=== PATIENT | male | born 1975 | race Two or more races ===

== ENCOUNTER 2019-03-08 11:51 | Emergency (ER) | payer MEDICARE, MEDICAID ==
[~2019-03-08] VITALS: Ht 149.9 cm; Wt 39.0 kg
--- NOTE | 2019-03-08 12:13 | NUR ---
PT SEEN AND EXAMINED BY DR. DOMINGO.
[2019-03-08] MEDS ORDERED: DIATR MEGLU/DIATRIZOATE SODIUM 30 ML BOTTLE (GASTROGRAPHIN) ONE (12:15)
--- NOTE | 2019-03-08 12:16 | NUR ---
G TUBE PLACED BY .
--- NOTE | 2019-03-08 12:17 | NUR ---
ELECTRONICS TECHNICIAN APPRENTICE AT BEDSIDE FOR KUB XRAY.
--- NOTE | 2019-03-08 12:42 | NUR ---
[facility] TRAN[facility]ORT W [id number] (30 MINS) TRIP #[id number]
--- NOTE | 2019-03-08 12:46 | NUR ---
MIGDALIA SAGE SPOKED TO [facility] PORTER ASSEMBLER HANDBAGS NOT ANSWERING.
--- NOTE | 2019-03-08 13:11 | NUR ---
REPORT GIVEN TO EMT FOR PT TRANSPORT.
[2019-03-08 13:12] VITALS: BP 103/68
== END 2019-03-08 13:22 | disposition home or self-care (01) ==
LOC: ER 11:53
DX: K94.23 Gastrostomy malfunction (principal); K21.9 Gastro-esophageal reflux disease without esophagitis; Z87.01 Personal history of pneumonia (recurrent)
CPT/HCPCS: 43762; 74018; 99284; Q9963

== ENCOUNTER 2019-03-15 17:19 | Inpatient (IN) | payer MEDICARE, MEDICAID ==
[~2019-03-15] VITALS: Ht 147.3 cm; Wt 37.3 kg
[2019-03-15] MEDS ORDERED: ALPR0.5T8 PO (18:03)
[2019-03-15] MEDS ORDERED: PROT946L PO (18:03)
[2019-03-15] MEDS ORDERED: ASCO500T9 PO (18:03)
[2019-03-15] MEDS ORDERED: LACT1CAP61 PO (18:03)
[2019-03-15] MEDS ORDERED: OCTR50DI IJ (18:03)
[2019-03-15] MEDS ORDERED: LEVA0.6320 IH (18:03)
[2019-03-15] MEDS ORDERED: OMEP20CA11 PO (18:03)
[2019-03-15] MEDS ORDERED: DOCU-141 PO (18:03)
[2019-03-15] MEDS ORDERED: BENZ1TAB7 PO (18:03)
[2019-03-15] MEDS ORDERED: FOLI1TAB16 PO (18:03)
[2019-03-15] MEDS ORDERED: ACET-73 PO (18:03)
[2019-03-15] MEDS ORDERED: PRED2.5T PO (18:03)
[2019-03-15] MEDS ORDERED: MULT-439 PO (18:03)
[2019-03-15] MEDS ORDERED: SENN-168 PO (18:03)
[2019-03-15] MEDS ORDERED: QUET50TA PO (18:03)
[2019-03-15] MEDS ORDERED: ACET1TAB23 PO (18:03)
[2019-03-15] MEDS ORDERED: MIDO5TAB PO (18:03)
[2019-03-15 19:16] LABS: BASOPHILS # (AUTO) 0.1 /CMM (0.0-0.2); BASOPHILS % (AUTO) 0.8 % (0.0-2.0); EOSINOPHILS % (AUTO) 1.2 % (0.0-6.0); HEMATOCRIT 35 % (39-51); HEMOGLOBIN 11.7 g/dL (13.5-17.5); LYMPHOCYTES # (AUTO) 2.4 /CMM (0.8-4.8); LYMPHOCYTES % (AUTO) 32.1 % (20.0-44.0); MEAN CORPUSCULAR HGB CONC 33 g/dl (31.0-36.0); MEAN CORPUSCULAR VOLUME 92 fL (80-96); MONOCYTES # (AUTO) 0.5 /CMM (0.1-1.30); MONOCYTES % (AUTO) 7.2 % (2.0-12.0); NEUTROPHILS # (AUTO) 4.5 /CMM (1.8-8.9); NEUTROPHILS % (AUTO) 58.7 % (43.0-81.0); PLATELET COUNT (AUTO) 743 /CMM (150-450); RED BLOOD CELL COUNT(AUTO) 3.84 MIL/uL (4.5-6.0); WHITE BLOOD COUNT (AUTO) 7.6 K/uL (4.3-11.0)
--- NOTE | 2019-03-15 19:21 | NUR ---
PT CAME IN W AN UPPER RIGHT HIP ABSCESS. PRESSURE SORE ON THE SACRAL AREA NOTED.
--- NOTE | 2019-03-15 19:21 | NUR ---
TRANSFER CARE REPORT TO TRUNG STEEL
[2019-03-15 19:23] LABS: CALCIUM, SERUM 9.1 mg/dL (8.5-10.1); CREATININE 0.6 mg/dL (0.6-1.3)
[2019-03-15 19:29] LABS: ALBUMIN 1.9 g/dL (3.4-5.0); BILIRUBIN,DIRECT 0.1 mg/dL (0.0-0.2); BILIRUBIN,TOTAL 0.2 mg/dL (0.2-1.0); TOTAL PROTEIN, SERUM 8.6 g/dL (6.4-8.2)
[2019-03-15] MEDS ORDERED: IV NS 0.9% 1,000 ML BAG IV ONE (20:00)
--- NOTE | 2019-03-15 20:20 | NUR ---
pt was found w/ pulled out iv. a new iv line started on RAC 18g w/ good blood draw/
[2019-03-15] MEDS ORDERED: IOHEXOL-300 100 ML VIAL IV ONE (20:32)
[2019-03-15] MEDS ORDERED: IV NS 0.9% 250 ML IV ONE (20:33)
[2019-03-15] MEDS ORDERED: CT SWABBABLE VALVE TRANS SET 1 EA INFUS.SET MC ONE (20:33)
[2019-03-15] MEDS ORDERED: VANCOMYCIN 1 GM in IV D5W 250 ML IV ONE (22:00)
[2019-03-15] MEDS ORDERED: PIPERACILLIN /TAZOBACTAM 3.375 G in IV D5W 50 ML IV ONE (22:00)
--- NOTE | 2019-03-15 22:07 | NUR ---
RECIEVED BED 310-2
[2019-03-15] MEDS ORDERED: VANCOMYCIN 1 GM VIAL ONE (22:09)
[2019-03-15] MEDS ORDERED: PIPERACILLIN /TAZOBACTAM 3.375 G VIAL IV ONE (22:09)
--- NOTE | 2019-03-15 22:27 | NUR ---
REPORT GIVEN TO MICHELLE ON THIRD FLOOR
--- NOTE | 2019-03-15 22:31 | NUR ---
GRETA PA ON THE PHONE WITH DR. LIM
--- NOTE | 2019-03-15 22:39 | NUR ---
PAGED DR ARROYO
[2019-03-15] MEDS ORDERED: SENNOSIDES 8.6 MG TABLET PO PRN (23:00)
[2019-03-15] MEDS ORDERED: ALPRAZOLAM 0.5 MG TABLET PO PRN (23:00)
[2019-03-15 23:35] VITALS: BP 127/69
--- NOTE | 2019-03-15 23:35 | NUR ---
MS RN ADMITTING NOTES RECEIVED PT FROM ER VIA [facility] IN STABLE CONDITION. PT NOTED WITH DOWN-SYNDROME, BLINDNESS, AND NON-VERBAL. RESPIRATIONS EVEN AND UNLABORED WITH NO S/S OF ACUTE DISTRESS OR SOB NOTED. PT WITH RAC #20G PATENT AND INTACT AND SL. PT NOTED WITH WOUNDS ON SACRUM AND RIGHT HIP/THIGH, PICTURES TAKEN. NO S/S OF PAIN AT THIS TIME. SAFETY MEASURES IN PLACE WITH BED IN LOWEST LOCKED POSITION WITH SIDE RAILS UP X3. CALL LIGHT WITHIN REACH. WILL CONTINUE TO MONITOR.
--- NOTE | 2019-03-15 23:44 | NUR ---
PT WAS TRANSFERRED TO 310-2 UNDER ACLS IN STABLE CONDITION.
[2019-03-16] MEDS ORDERED: MAG HYDROX/AL HYDROX/SIMETH 30 ML UDC PO PRN
[2019-03-16] MEDS ORDERED: ZOLPIDEM TARTRATE 5 MG TABLET PO PRN
[2019-03-16] MEDS ORDERED: HYDROCODONE/APAP 5/325MG 1 EACH TABLET PO PRN
[2019-03-16] MEDS ORDERED: MAGNESIUM HYDROXIDE 30 ML UDC PO PRN
[2019-03-16] MEDS ORDERED: ONDANSETRON HCL/PF 4 MG/2 ML VIAL IVP PRN
[2019-03-16] MEDS ORDERED: Z GUARD REMEDY 2 OZ OINT TP PRN
[2019-03-16] MEDS: IV NS 0.9% 1,000 ML IV PRN ×2 (01:02→20:56)
[2019-03-16] MEDS ORDERED: PIPERACILLIN /TAZOBACTAM 3.375 G VIAL IV ONE (04:47)
[2019-03-16] MEDS: PIPERACILLIN /TAZOBACTAM 3.375 G in IV D5W 50 ML IV SCH ×4 (05:33→23:43)
[2019-03-16 07:06] LABS: BASOPHILS # (AUTO) 0.1 /CMM (0.0-0.2); BASOPHILS % (AUTO) 0.8 % (0.0-2.0); EOSINOPHILS % (AUTO) 1.1 % (0.0-6.0); HEMATOCRIT 35 % (39-51); HEMOGLOBIN 11.8 g/dL (13.5-17.5); LYMPHOCYTES % (AUTO) 30.6 % (20.0-44.0); MEAN CORPUSCULAR HGB CONC 34 g/dl (31.0-36.0); MEAN CORPUSCULAR VOLUME 92 fL (80-96); MONOCYTES # (AUTO) 0.4 /CMM (0.1-1.30); MONOCYTES % (AUTO) 6.2 % (2.0-12.0); NEUTROPHILS # (AUTO) 4.1 /CMM (1.8-8.9); NEUTROPHILS % (AUTO) 61.3 % (43.0-81.0); PLATELET COUNT (AUTO) 720 /CMM (150-450); RED BLOOD CELL COUNT(AUTO) 3.84 MIL/uL (4.5-6.0); WHITE BLOOD COUNT (AUTO) 6.6 K/uL (4.3-11.0)
--- NOTE | 2019-03-16 07:39 | NUR ---
MS RN NOTES PT IN BED AND RESTING. PT NOTED WITH DOWN-SYNDROME, BLINDNESS, AND NON-VERBAL. RESPIRATIONS EVEN AND UNLABORED WITH NO S/S OF ACUTE DISTRESS OR SOB NOTED THROUGHOUT SHIFT. PT WITH RAC #20G PATENT AND INTACT INFUSING NS @75ML/HR. NO S/S OF PAIN NOTED AT THIS TIME. PT KEPT CLEAN, DRY, AND COMFORTABLE. TURNED PT Q2 HOURS THROUGHOUT SHIFT. SAFETY MEASURES IN PLACE WITH BED IN LOWEST LOCKED POSITION WITH SIDE RAILS UP X3. CALL LIGHT WITHIN REACH. WILL ENDORSE TO ONCOMING NURSE FOR MALLORIE.
[2019-03-16 07:46] LABS: ALBUMIN 1.8 g/dL (3.4-5.0); BILIRUBIN,TOTAL 0.4 mg/dL (0.2-1.0); CREATININE 0.6 mg/dL (0.6-1.3); MAGNESIUM 2.1 mg/dL (1.8-2.4); PHOSPHORUS 3.7 mg/dL (2.5-4.9); POTASSIUM 5.1 mmol/L (3.5-5.1); TOTAL PROTEIN, SERUM 8.4 g/dL (6.4-8.2)
[2019-03-16] MEDS ORDERED: FEE PK DOSING 1 MIN EA MC ONE (07:58)
[2019-03-16 08:00] VITALS: BP 119/61
[2019-03-16] MEDS ORDERED: QUETIAPINE FUMARATE 25 MG TABLET PO SCH (08:00)
[2019-03-16] MEDS: PROSOURCE / PROSTAT (PYXIS) 30 ML UDC PO SCH ×3 (08:00→17:00)
[2019-03-16] MEDS: PANTOPRAZOLE 40 MG TABLET.DR PO SCH (08:05)
[2019-03-16 08:18] LABS: CALCIUM, SERUM 8.7 mg/dL (8.5-10.1)
--- NOTE | 2019-03-16 08:21 | NUR ---
WOUND CARE CONSULT: PT TO BE FOLLOWED BY PLASTIC SURGERY TEAM. DEFER TO SURGICAL TEAM FOR WOUND TREATMENT PLAN. DISCUSSED PRESSURE ULCER PREVENTION/SKIN PROTECTION WITH NURSING STAFF. WILL SEE PRN. FIRST STEP LOW AIRLOSS MATTRESS ON ORDER. CURRENT AILYN SCORE IS 11.
[2019-03-16] MEDS: predniSONE 5 MG TABLET PO SCH (09:00)
[2019-03-16] MEDS ORDERED: OMEPRAZOLE 20 MG CAPSULE.DR PO SCH (09:00)
[2019-03-16] MEDS: VANCOMYCIN 500 MG in IV D5W 100 ML IV SCH ×2 (09:21→19:37)
[2019-03-16] MEDS: MIDODRINE HCL (5MG) 5 MG TABLET PO SCH ×3 (09:47→22:14)
[2019-03-16] MEDS: DOCUSATE SODIUM 100 MG CAPSULE PO SCH ×2 (09:48→17:00)
[2019-03-16] MEDS: ASCORBIC ACID 500 MG TABLET PO SCH (09:48)
[2019-03-16] MEDS: FOLIC ACID 1 MG TABLET PO SCH (09:49)
[2019-03-16] MEDS: BENZTROPINE MESYLATE (1 MG) 1 MG TABLET PO SCH (09:49)
[2019-03-16] MEDS: QUETIAPINE FUMARATE 25 MG TABLET PO SCH ×2 (09:49→22:15)
[2019-03-16] MEDS: ACIDOPHILUS/BULGARICUS 1 EACH TAB.CHEW PO SCH (09:55)
[2019-03-16] MEDS ORDERED: LIDOCAINE 1%-EPI 1:100,000 20 ML VIAL TP STA (14:41)
[2019-03-16 16:00] VITALS: BP 103/60
--- NOTE | 2019-03-16 19:30 | NUR ---
RN Notes Patient awake,non verbal, and blind, on room air and tolerated well. Constantly moving in bed and screaming. Iv access on left AC patent and intact with ongoing IVF infusing well. Safety measures in place. Kept clean and dry. Will continue to monitor patient.
[2019-03-16 20:00] VITALS: BP 116/76
[2019-03-16 22:00] VITALS: BP 116/76
[2019-03-17] MEDS: VANCOMYCIN 500 MG in IV D5W 100 ML IV SCH ×5 (01:17→21:36)
[2019-03-17] MEDS: PIPERACILLIN /TAZOBACTAM 3.375 G in IV D5W 50 ML IV SCH ×4 (05:45→23:26)
--- NOTE | 2019-03-17 07:08 | NUR ---
RN Notes Patient slept on and off overnight, constantly moving and screaming. No signs of distress noted. wound care done. Turned and repositioned per protocol. Kept clean and dry. Fall precaution observed. All needs attended. Endorsed to morning RN for continuity of care.
--- NOTE | 2019-03-17 07:14 | NUR ---
MS RN OPENING NOTE RECEIVED REPORT FROM [facility] SHIFT NURSE. PT AWAKE IN BED, CONFUSED, NON VERBAL. IV SITE ON LEFT AC G18 INTACT, PATENT, INFUSING NS AT 75ML/HR, NO SIGNS OF INFILTRATION NOTED. GTUBE CLAMPED. BED IN LOW POSITION, LOCKED, CALL LIGHT WITHIN REACH.
[2019-03-17 07:21] LABS: CALCIUM, SERUM 8.4 mg/dL (8.5-10.1); CREATININE 0.6 mg/dL (0.6-1.3); POTASSIUM 5.1 mmol/L (3.5-5.1)
[2019-03-17] MEDS: PANTOPRAZOLE 40 MG TABLET.DR PO SCH (07:52)
[2019-03-17 08:00] VITALS: BP 164/64
[2019-03-17] MEDS: predniSONE 5 MG TABLET PO SCH (08:42)
[2019-03-17] MEDS: QUETIAPINE FUMARATE 25 MG TABLET PO SCH ×2 (08:42→17:11)
[2019-03-17] MEDS: ASCORBIC ACID 500 MG TABLET PO SCH (08:42)
[2019-03-17] MEDS: ACIDOPHILUS/BULGARICUS 1 EACH TAB.CHEW PO SCH (08:42)
[2019-03-17] MEDS: FOLIC ACID 1 MG TABLET PO SCH (08:43)
[2019-03-17] MEDS: DOCUSATE SODIUM 100 MG CAPSULE PO SCH ×2 (08:43→17:11)
[2019-03-17] MEDS: MIDODRINE HCL (5MG) 5 MG TABLET PO SCH ×3 (08:43→17:00)
[2019-03-17] MEDS: BENZTROPINE MESYLATE (1 MG) 1 MG TABLET PO SCH (08:43)
[2019-03-17] MEDS: PROSOURCE / PROSTAT (PYXIS) 30 ML UDC PO SCH ×2 (09:05→17:12)
--- NOTE | 2019-03-17 11:00 | NUR ---
PT IS RESTLESS IN BED, HITTING, BITING, AND ATTEMPTING TO REMOVE IV LINE AND GTUBE. IV SITE ON LEFT AC BECAME INFILTRATED, REMOVED IV, APPLIED DRESSING, APPLY COLD COMPRESS. ATTEMPTED TO INSERT NEW IV SITE ON RIGHT AC, UNSUCCESSFUL INSERTION. WILL ATTEMPT AGAIN AT A LATER TIME.
--- NOTE | 2019-03-17 14:18 | NUR ---
NEW IV SITE ON RIGHT WRIST G22, INTACT, PATENT, ZOSYN INFUSING AT 100ML/HR.
[2019-03-17 15:50] VITALS: BP 116/50
--- NOTE | 2019-03-17 16:50 | NUR ---
RECEIVED PHONE CALL FROM TITLE I PARAPROFESSIONAL WITH TELEPHONE ORDERS FOR: JEVITY 1.2 AT 25ML/HR INCREASE TO 50ML/HR THROUGHOUT FIRST 24 HOURS. ORDERS PLACED.
[2019-03-17] MEDS: IV D5/0.45 NACL 1,000 ML IV PRN (17:53)
--- NOTE | 2019-03-17 18:34 | NUR ---
MS RN CLOSING NOTE PT AWAKE IN BED, ON ROOM AIR, SATURATING WELL, NO SIGNS OF RESPIRATORY DISTRESS NOTED. IV SITE ON RIGHT WRIST G22 INTACT, PATENT, INFUSING ZOSYN AT 100ML/HR, NO SIGNS OF INFILTRATION NOTED. BILATERAL SOFT WRIST RESTRAINTS WERE REMOVED EVERY 2 HOURS THROUGHOUT SHIFT TO CHECK FOR SKIN INTEGRITY AND CIRCULATION. PROVIDED SAFETY AND COMFORT TO PT THROUGHOUT SHIFT. WILL ENDORSE TO NOC SHIFT FOR MALLORIE.
--- NOTE | 2019-03-17 19:30 | NUR ---
RECEIVED PATIENT IN BED AWAKE, AO X 0, GARBLED SPEECH, YELLING. NO ACUTE DISTRESS NOTED. NO SIGNS OF PAIN NOTED. IV SITE PATENT, INTACT; IVF INFUSING ORDERED. GT PATENT, INTACT; IN PLACE VIA AUSCULTATION. BILATERAL SOFT WRIST RESTRAINTS ALREADY APPLIED; TAKEN OFF FOR SKIN CHECK AND ROM. PATIENT IS VERY RESTLESS; TUGGING AT IV LINE AND GT WHEN NOT IN RESTRAINTS. ON LOW BED WITH BILATERAL UPPER SIDE RAILS UP. CALL CASILLAS WITHIN EASY REACH. WILL CONTINUE TO MONITOR.
[2019-03-17 20:00] VITALS: BP 123/71
[2019-03-17] MEDS: JEVITY 1.2 CAL 1,000 ML BOTTLE GT PRN (23:25)
[2019-03-18] MEDS: IV D5/0.45 NACL 1,000 ML IV PRN (05:24)
[2019-03-18] MEDS: PIPERACILLIN /TAZOBACTAM 3.375 G in IV D5W 50 ML IV SCH ×2 (05:24→12:19)
--- NOTE | 2019-03-18 06:00 | NUR ---
PATIENT AWAKE. RESPIRATIONS EVEN. NO SIGNS OF PAIN NOTED. DUE MEDS GIVEN WITH NO ASE NOTED. IVF INFUSING ORDERED. NEEDS ATTENDED. KEPT CLEAN, DRY AND COMFORTABLE. TURNED AND REPOSITIONED Q 2 HOURS. BILATERAL SOFT WRIST RESTRAINTS PERIODICALLY REMOVED FOR SKIN CHECKS AND ROM. JEVITY 1.2 RUNNING AT 35 ML/HOURS (WITH A GOAL OF 50 ML/HOUR WITHIN 24 HOURS OF START). RESIDUAL ASPIRATED. NO NVD. HOB RAISED. PATIENT TOLERATING GTF. ABDOMINAL BINDER APPLIED. SAFETY PRECAUTIONS AND COMFORT MEASURES IN PLACE. WILL GIVE REPORT TO DAY SHIFT FOR CONTINUITY OF CARE.
[2019-03-18 06:48] LABS: CREATININE 0.6 mg/dL (0.6-1.3); MAGNESIUM 1.8 mg/dL (1.8-2.4); PHOSPHORUS 2.6 mg/dL (2.5-4.9); POTASSIUM 3.9 mmol/L (3.5-5.1)
--- NOTE | 2019-03-18 07:30 | NUR ---
MS RN OPENING NOTE RECEIVED PATIENT IN BED RESTING COMFORTABLY. PATIENT IN NO ACUTE DISTRESS. NO SOB NOTED. PATIENT BREATHING IS EVEN AND UNLABORED. PATIENT ON BILATERAL WRIST RESTRAINTS. PATIENT MAINTAINED ON JEVITY RUNNING AT 35ML/ HR. NO FACIAL GRIMACING NOTED. HOB IS ELEVATED. PATIENT BED IS LOCKED AND IN LOWEST POSITION. CALL LIGHT WITHIN REACH. WILL CONTINUE TO MONITOR.
[2019-03-18] MEDS: PANTOPRAZOLE 40 MG TABLET.DR PO SCH (08:37)
[2019-03-18] MEDS: MIDODRINE HCL (5MG) 5 MG TABLET PO SCH ×3 (09:00→17:33)
[2019-03-18] MEDS: FOLIC ACID 1 MG TABLET PO SCH (09:23)
[2019-03-18] MEDS: ACIDOPHILUS/BULGARICUS 1 EACH TAB.CHEW PO SCH (09:23)
[2019-03-18] MEDS: ASCORBIC ACID 500 MG TABLET PO SCH (09:23)
[2019-03-18] MEDS: DOCUSATE SODIUM 100 MG CAPSULE PO SCH ×2 (09:23→17:31)
[2019-03-18] MEDS: BENZTROPINE MESYLATE (1 MG) 1 MG TABLET PO SCH (09:23)
[2019-03-18] MEDS: QUETIAPINE FUMARATE 25 MG TABLET PO SCH ×2 (09:23→17:32)
[2019-03-18] MEDS: VANCOMYCIN 500 MG in IV D5W 100 ML IV SCH ×3 (09:27→21:02)
[2019-03-18] MEDS: PROSOURCE / PROSTAT (PYXIS) 30 ML UDC PO SCH ×2 (09:28→17:33)
[2019-03-18] MEDS: predniSONE 5 MG TABLET PO SCH (09:28)
--- NOTE | 2019-03-18 10:27 | NUR ---
MS MILVIA CRAWLEY DUE TO BP 146/62. Addendum: 03/18/19 at 1029 by BERNADINE CAUSEY RN HELD AT 0900.
[2019-03-18 12:08] LABS: WHITE BLOOD COUNT (AUTO) 6.8 K/uL (4.3-11.0)
[2019-03-18 12:13] LABS: BASOPHILS # (AUTO) 0.1 /CMM (0.0-0.2); EOSINOPHILS % (AUTO) 0.3 % (0.0-6.0); HEMATOCRIT 34 % (39-51); HEMOGLOBIN 11.3 g/dL (13.5-17.5); LYMPHOCYTES # (AUTO) 1.5 /CMM (0.8-4.8); LYMPHOCYTES % (AUTO) 21.9 % (20.0-44.0); MEAN CORPUSCULAR HGB CONC 33 g/dl (31.0-36.0); MEAN CORPUSCULAR VOLUME 91 fL (80-96); MONOCYTES # (AUTO) 0.4 /CMM (0.1-1.30); MONOCYTES % (AUTO) 5.6 % (2.0-12.0); NEUTROPHILS # (AUTO) 4.9 /CMM (1.8-8.9); NEUTROPHILS % (AUTO) 71.2 % (43.0-81.0); PLATELET COUNT (AUTO) 631 /CMM (150-450); RED BLOOD CELL COUNT(AUTO) 3.72 MIL/uL (4.5-6.0)
[2019-03-18 12:20] VITALS: BP 88/62
--- NOTE | 2019-03-18 16:00 | NUR ---
MS RN NOTE ORDERS TO ASK LAB FOR CULTURE OF FLUID FROM PERCUTANEOUS RIGHT ABSCESS DRAINING. NO FLUID DRAINED. MD MADE AWARE THAT NO FLUID COULD BE COLLECTED IN OR.
[2019-03-18] MEDS ORDERED: NA PHOS,M-B/NA PHOS,DI-BA 1 EA ENEMA RC PRN (16:30)
--- NOTE | 2019-03-18 18:15 | NUR ---
MS RN NOTE ELAN MENDEZ MICA WASHER GLUER PUT IN CHAWLA CATHETER AND IS DRAINING TO GRAVITY, CLEAR AND YELLOW FLUID. ELAN MENDEZ ALSO HAD FLEET ENEMA INSERTION FOR PATIENT, PATIENT HAD 1 BOWEL MOVEMENT AFTER. PATIENT IN NO ACUTE DISTRESS. WILL CONTINUE TO MONITOR.
--- NOTE | 2019-03-18 19:25 | NUR ---
MS RN CLOSING NOTE PATIENT IN BED RESTING COMFORTABLY. PATIENT IN NO ACUTE DISTRESS. NO SOB NOTED. PATIENT BREATHING IS EVEN AND UNLABORED. PATIENT ON BILATERAL SOFT WRIST RESTRAINTS. RESTRAINTS PERIODICALLY REMOVED FOR SKIN CHECKS AND ROM. JEVITY RUNNING AT 35CC/ HR WITH GOAL OF 50 ML/ HR FROM WITHIN 24 START. G TUBE INTACT AND PATENT. WOUND CARE PROVIDED ORDERED. PATIENT KEPT CLEAN, DRY, AND COMFORTABLE. PATIENT CHAWLA CATHETER DRAINING TO GRAVITY, DRAINING CLEAR YELLOW FLUID. HOB IS ELEVATED. BED ALARM IS ON. SAFETY PRECAUTIONS IN PLACE. PATIENT BED IS LOCKED AND IN LOWEST POSITION. CALL LIGHT WITHIN REACH. WILL ENDORSE CARE TO PM SHIFT FOR MALLORIE.
--- NOTE | 2019-03-18 19:30 | NUR ---
MS RN OPENING NOTE RECEIVED PATIENT IN BED. A/OX0, NONVERBAL. TOLERATING ROOM AIR. RESPIRATIONS ARE EVEN AND UNLABORED. NO SIGN OF SOB. NO MANIFESTATIONS OF PAIN AT THIS TIME. NO APPARENT DISTRESS. IV ACCESS IN LAC #22 RUNNING D5 1/2NS @100. CHAWLA CATHETER IS PRESENT, DRAINING TO GRAVITY, URINE IS YELLOW AND CLEAR. GTUBE PRESENT, ASPIRATED, NO RESIDUAL, POSITIVE PLACEMENT, FLUSHED WITH NO RESISTANCE, RUNNING JEVITY 1.2 @ 35ML/HR. BILATERAL RESTRAINTS PRESENT, GOOD CIRCULATION, NO REDNESS AT THIS TIME. BED IS LOW AND LOCKED, SIDE RAILS UP X2, HOB ELEVATED 40 DEGREES. CALL LIGHT WITHIN REACH. WILL CONTINUE TO MONITOR.
[2019-03-18] MEDS: ENOXAPARIN SODIUM 40 MG/0.4 ML DISP.SYRIN SQ SCH (21:02)
[2019-03-19] MEDS: IV D5/0.45 NACL 1,000 ML IV PRN (02:01)
--- NOTE | 2019-03-19 06:30 | NUR ---
MS RN CLOSING NOTE PATIENT IN BED. A/OX0, NONVERBAL. REMAINS TOLERATING ROOM AIR. RESPIRATIONS ARE EVEN AND UNLABORED. NO SIGN OF SOB NOTED THROUGHOUT SHIFT. NO MANIFESTATIONS OF PAIN. NO DISTRESS NOTED. IV ACCESS MAINTAINED IN LAC #22 RUNNING D5 1/2NS @100 ML/HR. CHAWLA CATHETER IS MAINTAINED, DRAINING TO GRAVITY, URINE IS YELLOW AND CLEAR. GTUBE MAINTAINED, RUNNING JEVITY 1.2 @ 50ML/HR. BILATERAL RESTRAINT NO LONGER PRESENT, NO REDNESS NOTED ON WRIST. BED REMAINS LOW AND LOCKED, SIDE RAILS UP X2, HOB ELEVATED 40 DEGREES. CALL LIGHT WITHIN REACH. WILL ENDORSE TO NEXT SHIFT.
[2019-03-19 07:49] LABS: BASOPHILS % (AUTO) 0.3 % (0.0-2.0); EOSINOPHILS % (AUTO) 0.3 % (0.0-6.0); HEMATOCRIT 34 % (39-51); HEMOGLOBIN 11.3 g/dL (13.5-17.5); LYMPHOCYTES # (AUTO) 1.2 /CMM (0.8-4.8); LYMPHOCYTES % (AUTO) 10.8 % (20.0-44.0); MEAN CORPUSCULAR HGB CONC 33 g/dl (31.0-36.0); MEAN CORPUSCULAR VOLUME 92 fL (80-96); MONOCYTES # (AUTO) 0.6 /CMM (0.1-1.30); MONOCYTES % (AUTO) 5.6 % (2.0-12.0); NEUTROPHILS # (AUTO) 9.4 /CMM (1.8-8.9); PLATELET COUNT (AUTO) 624 /CMM (150-450); RED BLOOD CELL COUNT(AUTO) 3.69 MIL/uL (4.5-6.0); WHITE BLOOD COUNT (AUTO) 11.3 K/uL (4.3-11.0)
[2019-03-19 08:00] VITALS: BP_SYST 141; BP_SYST 99; BP_DIAS 40; BP_DIAS 76
[2019-03-19 08:02] LABS: CALCIUM, SERUM 7.9 mg/dL (8.5-10.1); CREATININE 0.4 mg/dL (0.6-1.3); MAGNESIUM 2.2 mg/dL (1.8-2.4); PHOSPHORUS 2.8 mg/dL (2.5-4.9)
[2019-03-19] MEDS: DOCUSATE SODIUM 100 MG CAPSULE PO SCH ×2 (09:14→17:00)
[2019-03-19] MEDS: predniSONE 5 MG TABLET PO SCH (09:14)
[2019-03-19] MEDS: BENZTROPINE MESYLATE (1 MG) 1 MG TABLET PO SCH (09:14)
[2019-03-19] MEDS: PROSOURCE / PROSTAT (PYXIS) 30 ML UDC PO SCH ×2 (09:15→18:13)
[2019-03-19] MEDS: ACIDOPHILUS/BULGARICUS 1 EACH TAB.CHEW PO SCH (09:15)
[2019-03-19] MEDS: QUETIAPINE FUMARATE 25 MG TABLET PO SCH ×2 (09:15→18:12)
[2019-03-19] MEDS: FOLIC ACID 1 MG TABLET PO SCH (09:15)
[2019-03-19] MEDS: ASCORBIC ACID 500 MG TABLET PO SCH (09:15)
[2019-03-19] MEDS: PANTOPRAZOLE 40 MG TABLET.DR PO SCH ×2 (09:18→22:11)
[2019-03-19] MEDS: MIDODRINE HCL (5MG) 5 MG TABLET PO SCH ×3 (09:19→18:13)
--- NOTE | 2019-03-19 10:00 | NUR ---
IV LT. AC INFILTRATED AND REMOVED.RESTARTED RT. FOREARM WITH #22 ANGIO.
[2019-03-19] MEDS: VANCOMYCIN 500 MG in IV D5W 100 ML IV SCH ×2 (11:08→22:11)
[2019-03-19] MEDS: JEVITY 1.2 CAL 1,000 ML BOTTLE GT PRN (11:59)
[2019-03-19] MEDS: POTASSIUM CL. PREMIX PERIPHER. 50 ML IV SCH ×6 (12:50→18:59)
[2019-03-19 16:00] VITALS: BP 106/71
--- NOTE | 2019-03-19 17:00 | NUR ---
Giuliana MENDEZ POLICY SPECIALIST NOTIFIED PT. HAS MRSA RT. HIP AND AWARE PT. ON VANCOMYCIN.
--- NOTE | 2019-03-19 19:00 | NUR ---
PT. HAS HAD POTASSIUM IV REPLACEMENTS.
[2019-03-19] MEDS: ENOXAPARIN SODIUM 40 MG/0.4 ML DISP.SYRIN SQ SCH (22:14)
[2019-03-20 07:14] LABS: BASOPHILS # (AUTO) 0.1 /CMM (0.0-0.2); BASOPHILS % (AUTO) 0.7 % (0.0-2.0); EOSINOPHILS % (AUTO) 1.4 % (0.0-6.0); HEMATOCRIT 31 % (39-51); HEMOGLOBIN 10.4 g/dL (13.5-17.5); LYMPHOCYTES % (AUTO) 24.2 % (20.0-44.0); MEAN CORPUSCULAR HGB CONC 33 g/dl (31.0-36.0); MEAN CORPUSCULAR VOLUME 92 fL (80-96); MONOCYTES # (AUTO) 0.6 /CMM (0.1-1.30); MONOCYTES % (AUTO) 7.1 % (2.0-12.0); NEUTROPHILS # (AUTO) 5.4 /CMM (1.8-8.9); NEUTROPHILS % (AUTO) 66.6 % (43.0-81.0); PLATELET COUNT (AUTO) 590 /CMM (150-450); RED BLOOD CELL COUNT(AUTO) 3.39 MIL/uL (4.5-6.0); WHITE BLOOD COUNT (AUTO) 8.1 K/uL (4.3-11.0)
[2019-03-20 07:18] LABS: CALCIUM, SERUM 7.7 mg/dL (8.5-10.1); CREATININE 0.4 mg/dL (0.6-1.3); MAGNESIUM 2.1 mg/dL (1.8-2.4); PHOSPHORUS 2.1 mg/dL (2.5-4.9); POTASSIUM 4.5 mmol/L (3.5-5.1)
--- NOTE | 2019-03-20 07:30 | NUR ---
MS RN OPENING NOTE PATIENT IN BED RESTING COMFORTABLY IN MODERATE HIGH BACK REST. NONVERBAL. TOLERATING ROOM AIR. RESPIRATIONS ARE EVEN AND UNLABORED. NO SIGN OF SOB NOTED AT THIS TIME. NO MANIFESTATIONS OF PAIN. IV FLUIDS ON LAC #22 RUNNING D5 1/2NS @100 ML/HR. CHAWLA CATHETER NOTED, DRAINING TO GRAVITY, URINE IS YELLOW AND CLEAR. GTUBE MAINTAINED, RUNNING JEVITY 1.2 @ 50ML/HR. SAFETY MEASURES IN PLACE, BED IN LOW LOCKED POSITION WITH SIDE RAILS UP X2, CALL LIGHT WITHIN REACH. WILL CONTINUE TO MONITOR.
[2019-03-20] MEDS: JEVITY 1.2 CAL 1,000 ML BOTTLE GT PRN (08:37)
[2019-03-20] MEDS: FOLIC ACID 1 MG TABLET PO SCH (08:39)
[2019-03-20] MEDS: BENZTROPINE MESYLATE (1 MG) 1 MG TABLET PO SCH (08:39)
[2019-03-20] MEDS: ASCORBIC ACID 500 MG TABLET PO SCH (08:39)
[2019-03-20] MEDS: MIDODRINE HCL (5MG) 5 MG TABLET PO SCH ×3 (08:39→17:12)
[2019-03-20] MEDS: QUETIAPINE FUMARATE 25 MG TABLET PO SCH ×2 (08:39→17:11)
[2019-03-20] MEDS: predniSONE 5 MG TABLET PO SCH (08:40)
[2019-03-20] MEDS: PANTOPRAZOLE 40 MG TABLET.DR PO SCH (08:40)
[2019-03-20] MEDS: ACIDOPHILUS/BULGARICUS 1 EACH TAB.CHEW PO SCH (08:40)
[2019-03-20] MEDS: DOCUSATE SODIUM 100 MG CAPSULE PO SCH ×2 (08:40→17:11)
[2019-03-20] MEDS: PROSOURCE / PROSTAT (PYXIS) 30 ML UDC PO SCH ×2 (08:41→17:12)
[2019-03-20] MEDS: VANCOMYCIN 500 MG in IV D5W 100 ML IV SCH ×2 (09:31→22:00)
[2019-03-20] MEDS ORDERED: NEUTRA PHOS 1 POWD.PACKET GT ONE (13:30)
[2019-03-20] MEDS: ACETAMINOPHEN 325 MG TABLET PO PRN (13:41)
--- NOTE | 2019-03-20 15:40 | NUR ---
MS RN NOTES SEEN AND EXAMINED BY DR. ELAN MENDEZ WITH ORDERS TO REMOVED CHAWLA CATHETER. WILL CONTINUE TO MONITOR.
[2019-03-20] MEDS: IV D5/0.45 NACL 1,000 ML IV PRN (18:41)
--- NOTE | 2019-03-20 19:29 | NUR ---
MS RN CLOSING NOTE PATIENT IN BED RESTING COMFORTABLY IN MODERATE HIGH BACK REST. NONVERBAL. TOLERATING ROOM AIR. RESPIRATIONS ARE EVEN AND UNLABORED. NO SIGNS OF SOB NOTED THROUGHOUT THE SHIFT. IV FLUIDS ON LAC #22 RUNNING D5 1/2NS @100 ML/HR. GTUBE MAINTAINED, RUNNING JEVITY 1.2 @ 50ML/HR. SAFETY MEASURES IN PLACE, BED IN LOW LOCKED POSITION WITH SIDE RAILS UP X2, CALL LIGHT WITHIN REACH. ENDORSED TO ECMO SPECIALIST NURSE FOR MALLORIE.
--- NOTE | 2019-03-20 19:30 | NUR ---
MS/RN NOTES RECEIVED PT. LYING IN BED. PT. IS N=A&OX0, NON-VERBAL, MAKES SOUNDS. BREATHING EVEN AND UNLABORED ON ROOM AIR. NO SOB, RESPIRATORY DISTRESS OR S/S OF PAIN NOTED AT THIS TIME. PT. WITH RIGHT AC 22 GAUGE PERIPHERAL IV PRESENT, PATENT AND INTACT ADMINISTERING TO PT. D5 1/2 NS @ 100ML/HR. PT. WITH G-TUBE PRESENT, PATENT AND INTACT ADMINISTERING TO PT. JEVITY 1.2 @ 50ML/HR. PT. TOLERATING TUBE FEEDING WELL, NO RESIDUAL NOTED AT THIS TIME. PT. IS AGITATED AT THIS TIME AND ATTEMPTING TO PULL AT IV SITE AND G-TUBE. PT. WITH BILATERAL SOFT WRIST RESTRAINTS PRESENT AT THIS TIME. CIRCULATION CHECK DONE. PT. WITH 1:1 SITTER PRESENT AT BEDSIDE. BED LOCKED AND IN LOWEST POSITION, SIDE RAILS UP X3, BED ALARM ON, WILL CONTINUE TO MONITOR.
[2019-03-20] MEDS: ENOXAPARIN SODIUM 40 MG/0.4 ML DISP.SYRIN SQ SCH (22:00)
--- NOTE | 2019-03-21 06:58 | NUR ---
MS/RN NOTES PT. IS LYING IN BED, BREATHING EVEN AND UNLABORED ON ROOM AIR. NO SOB, RESPIRATORY DISTRESS OR S/S OF PAIN NOTED AT THIS TIME AND THROUGHOUT SHIFT. PT. WITH LEFT FOREARM 22 GAUGE PERIPHERAL IV PRESENT, PATENT AND INTACT ADMINISTERING TO PT. D5 1/2 NS @ 100ML/HR. PT. WITH G-TUBE PRESENT, PATENT AND INTACT ADMINISTERING TO PT. JEVITY 1.2 @ 50ML/HR. PT. TOLERATING TUBE FEEDING WELL, NO RESIDUAL NOTED AT THIS TIME AND THROUGHOUT SHIFT. PT. WITH BILATERAL SOFT WRIST RESTRAINTS PRESENT AT THIS TIME. CIRCULATION CHECK DONE. PT. WITH 1:1 SITTER PRESENT AT BEDSIDE. ALL PT. NEEDS MET. SAFETY, ASPIRATION AND CONTACT ISOLATION PRECAUTIONS IMPLEMENTED AND IN PLACE. BED LOCKED AND IN LOWEST POSITION, SIDE RAILS UP X3, BED ALARM ON, WILL ENDORSE TO DAYSHIFT NURSE FOR CONTINUITY OF CARE.
[2019-03-21 07:20] LABS: CREATININE 0.4 mg/dL (0.6-1.3); PHOSPHORUS 3.1 mg/dL (2.5-4.9); POTASSIUM 4.3 mmol/L (3.5-5.1)
[2019-03-21 08:00] VITALS: BP 101/63
--- NOTE | 2019-03-21 08:00 | NUR ---
MS RN OPENING NOTES Received Patient resting in bed. VS stable with no acute distress. Breathing even and unlabored on room air with no respiratory distress. No signs and symptoms of pain at this time. Gtube in place and patent with Jevity 1.2 running at 50ml/hr. Patient tolerating tube feeding well. 22g PIV on LFA clean, dry, intact and flushing well with D51/2 NS at 100ml/hr. Bilateral soft wrist restraints in place and patent. Circulation check done. Isolation in place. Safety precautions in place. Bed locked and set to lowest position with side rails x [address] up[address] Bed alarm in place. All needs rendered at this time. Call light within reach. Sitter at bedside. Will continue to monitor.
[2019-03-21] MEDS: DOCUSATE SODIUM 100 MG CAPSULE PO SCH ×2 (09:15→17:55)
[2019-03-21] MEDS: FOLIC ACID 1 MG TABLET PO SCH (09:15)
[2019-03-21] MEDS: QUETIAPINE FUMARATE 25 MG TABLET PO SCH ×2 (09:15→17:56)
[2019-03-21] MEDS: ASCORBIC ACID 500 MG TABLET PO SCH (09:15)
[2019-03-21] MEDS: BENZTROPINE MESYLATE (1 MG) 1 MG TABLET PO SCH (09:15)
[2019-03-21] MEDS: predniSONE 5 MG TABLET PO SCH (09:15)
[2019-03-21] MEDS: ACIDOPHILUS/BULGARICUS 1 EACH TAB.CHEW PO SCH (09:15)
[2019-03-21] MEDS: PROSOURCE / PROSTAT (PYXIS) 30 ML UDC PO SCH ×2 (09:17→17:56)
[2019-03-21] MEDS: MIDODRINE HCL (5MG) 5 MG TABLET PO SCH ×3 (09:17→17:57)
[2019-03-21] MEDS: VANCOMYCIN 500 MG in IV D5W 100 ML IV SCH ×2 (09:19→22:37)
[2019-03-21] MEDS: HYDROGEL DRESSING 90 GM TUBE TP SCH (11:06)
[2019-03-21] MEDS ORDERED: RXVAN XX (13:39)
[2019-03-21 16:00] VITALS: BP 94/56
[2019-03-21] MEDS: ACETAMINOPHEN 325 MG TABLET PO PRN (17:56)
[2019-03-21] MEDS: JEVITY 1.2 CAL 1,000 ML BOTTLE GT PRN (18:31)
[2019-03-21] MEDS: IV D5/0.45 NACL 1,000 ML IV PRN (18:31)
--- NOTE | 2019-03-21 18:49 | NUR ---
MS RN CLOSING NOTES Patient resting in bed. VS stable with no acute distress. Breathing even and unlabored on room air with no respiratory distress. No signs and symptoms of pain at this time. Gtube in place and patent with Jevity 1.2 running at 50ml/hr. Patient tolerating tube feeding well with 0 residual noted. 22g PIV on LFA clean, dry, intact and flushing well with D51/2 NS at 100ml/hr. Bilateral soft wrist restraints in place and patent. Circulation check done. Isolation precautions in place. Safety precautions in place. Bed locked and set to lowest position with side rails x [address] up[address] Bed alarm in place. All needs rendered at this time. Call light within reach. Sitter at bedside. Will endorse plan of care to oncoming shift.
--- NOTE | 2019-03-21 19:25 | NUR ---
MS/RN NOTES RECEIVED PT. LYING IN BED. PT. IS A&O X0, NON-VERBAL, MAKES SOUNDS. BREATHING EVEN AND UNLABORED ON ROOM AIR. NO SOB, RESPIRATORY DISTRESS OR S/S OF PAIN NOTED AT THIS TIME. PT. WITH LEFT FOREARM 22 GAUGE PERIPHERAL IV PRESENT, PATENT AND INTACT ADMINISTERING TO PT. D5 1/2 NS @ 100ML/HR. PT. WITH G-TUBE PRESENT, PATENT AND INTACT ADMINISTERING TO PT. JEVITY 1.2 @ 50ML/HR. PT. TOLERATING TUBE FEEDING WELL, NO RESIDUAL NOTED AT THIS TIME. PT. WITH BILATERAL SOFT WRIST RESTRAINTS PRESENT AT THIS TIME. CIRCULATION CHECK DONE. BED LOCKED AND IN LOWEST POSITION, SIDE RAILS UP X3, BED ALARM ON, WILL CONTINUE TO MONITOR.
[2019-03-21 20:00] VITALS: BP 112/71
[2019-03-21] MEDS: ENOXAPARIN SODIUM 40 MG/0.4 ML DISP.SYRIN SQ SCH (22:38)
[2019-03-22] MEDS: ACETAMINOPHEN 325 MG TABLET PO PRN ×2 (04:05→17:28)
[2019-03-22] MEDS: IV D5/0.45 NACL 1,000 ML IV PRN (06:16)
--- NOTE | 2019-03-22 06:24 | NUR ---
MS/RN NOTES PT. IS LYING IN BED RESTING. BREATHING EVEN AND UNLABORED ON ROOM AIR. NO SOB, RESPIRATORY DISTRESS OR S/S OF PAIN NOTED AT THIS TIME. PT. WITH LEFT FOREARM 22 GAUGE PERIPHERAL IV PRESENT, PATENT AND INTACT ADMINISTERING TO PT. D5 1/2 NS @ 100ML/HR. PT. WITH G-TUBE PRESENT, PATENT AND INTACT ADMINISTERING TO PT. JEVITY 1.2 @ 50ML/HR. PT. TOLERATING TUBE FEEDING WELL, NO RESIDUAL NOTED AT THIS TIME AND THROUGHOUT SHIFT. PT. OFFLOADED, TURNED AND REPOSITIONED Q2H AND NEEDED. PT. WITH BILATERAL SOFT WRIST RESTRAINTS PRESENT AT THIS TIME. CIRCULATION CHECK DONE. ALL PT. NEEDS MET. SAFETY, ASPIRATION AND CONTACT ISOLATION PRECAUTIONS IMPLEMENTED AND IN PLACE. BED LOCKED AND IN LOWEST POSITION, SIDE RAILS UP X3, BED ALARM ON, WILL ENDORSE TO DAYSHIFT NURSE FOR CONTINUITY OF CARE.
[2019-03-22 07:01] LABS: CALCIUM, SERUM 8.3 mg/dL (8.5-10.1); CREATININE 0.4 mg/dL (0.6-1.3); POTASSIUM 4.7 mmol/L (3.5-5.1)
--- NOTE | 2019-03-22 07:47 | NUR ---
MS RN OPENING NOTES Patient resting in bed. VS stable with no acute distress. Breathing even and unlabored on room air with no respiratory distress. No signs and symptoms of pain at this time. Gtube in place and patent with Jevity 1.2 running at 50ml/hr. Patient tolerating tube feeding well with 0 residual noted. 22g PIV on LFA clean, dry, intact and flushing well with D51/2 NS running at 100ml/hr. Bilateral soft wrist restraints in place and patent. Circulation check done. Isolation precautions in place. Safety precautions in place. Bed locked and set to lowest position with side rails x [address] up. Bed alarm in place. All needs rendered at this time. Call light within reach. Sitter at bedside. Will continue to monitor.
[2019-03-22 08:00] VITALS: BP 102/62
[2019-03-22] MEDS: PANTOPRAZOLE 40 MG TABLET.DR PO SCH (08:51)
[2019-03-22] MEDS: BENZTROPINE MESYLATE (1 MG) 1 MG TABLET PO SCH (08:51)
[2019-03-22] MEDS: FOLIC ACID 1 MG TABLET PO SCH (08:51)
[2019-03-22] MEDS: ACIDOPHILUS/BULGARICUS 1 EACH TAB.CHEW PO SCH (08:51)
[2019-03-22] MEDS: DOCUSATE SODIUM LIQ 100 MG/10 ML UDC GT SCH ×2 (08:51→17:10)
[2019-03-22] MEDS: predniSONE 5 MG TABLET PO SCH (08:51)
[2019-03-22] MEDS: PROSOURCE / PROSTAT (PYXIS) 30 ML UDC PO SCH ×2 (08:52→17:11)
[2019-03-22] MEDS: ASCORBIC ACID 500 MG TABLET PO SCH (08:52)
[2019-03-22] MEDS: HYDROGEL DRESSING 90 GM TUBE TP SCH (08:52)
[2019-03-22] MEDS: MIDODRINE HCL (5MG) 5 MG TABLET PO SCH ×3 (08:52→17:22)
[2019-03-22] MEDS: QUETIAPINE FUMARATE 25 MG TABLET PO SCH ×2 (08:52→17:11)
[2019-03-22] MEDS: VANCOMYCIN 500 MG in IV D5W 100 ML IV SCH (09:02)
[2019-03-22 17:22] VITALS: BP 87/59
--- NOTE | 2019-03-22 18:45 | NUR ---
MS SENIOR OUTSIDE SALES REPRESENTATIVE NOTES Patient discharged for [facility] at this time. Patient in stable condition. VS stable with no acute distress. Breathing even and unlabored on room air with no respiratory distress. Patient making garbling sounds and moving around bed. Administered Tylenol 650mg GT. Gtube site clean, intact and patent. 22g PIV on LFA clean, dry, intact and flushing well. Skin assessment pictures taken and placed in chart. Unable to review and explain medication reconciliation and discharge orders d/t mental condition. All belongings with Patient. Patient will follow up with PCP at [facility]. Report given to Mandie STEEL. Escorted Patient to the Lobby for safety. Patient picked up by Ambulance Transport.
== END 2019-03-22 18:51 | DRG 570 ==
LOC: ER 17:20 → MED 22:11
PROVIDERS: ADMIT Internal Medicine; ATTEND Nurse Practitioner Acute Care
PROC: 0JBL0ZZ Excision of Right Upper Leg Subcutaneous Tissue and Fascia, Open Approach (ICD-10-PCS; principal; 2019-03-17)
PROC: 0KBQ0ZZ Excision of Right Upper Leg Muscle, Open Approach (ICD-10-PCS; 2019-03-22)
DX: L02.415 Cutaneous abscess of right lower limb (principal); G93.41 Metabolic encephalopathy; E87.2 Acidosis; E44.0 Moderate protein-calorie malnutrition; D68.59 Other primary thrombophilia; Z68.1 Body mass index [BMI] 19.9 or less, adult; Q90.9 Down syndrome, unspecified; E86.0 Dehydration; Z86.718 Personal history of other venous thrombosis and embolism; Z87.01 Personal history of pneumonia (recurrent); D64.9 Anemia, unspecified; K21.9 Gastro-esophageal reflux disease without esophagitis; E88.09 Other disorders of plasma-protein metabolism, not elsewhere classified; M62.50 Muscle wasting and atrophy, not elsewhere classified, unspecified site; Z74.01 Bed confinement status; L89.150 Pressure ulcer of sacral region, unstageable; L08.9 Local infection of the skin and subcutaneous tissue, unspecified; H54.61 Unqualified visual loss, right eye, normal vision left eye; F41.9 Anxiety disorder, unspecified; M84.459S Pathological fracture, hip, unspecified, sequela; R33.9 Retention of urine, unspecified; K56.41 Fecal impaction
CPT/HCPCS: 36415; 73502; 73700-TC; 73701-TC; 76882; 80048-TC; 80053-TC; 80076-TC; 80202-TC; 83605-TC; 83735-TC; 84100-TC; 85025-TC; 85652-TC; 85730-TC; 87040-TC; 87070-TC; 87081-TC; 97110-TC; 97112-TC; 97530-TC; A6248; A6253; A6403; A6407; G0378; J1650; J2543; J3370; J3480; J3490; J7030; J7042; J7050; J7060; J7512; Q9967

== ENCOUNTER 2019-04-15 01:41 | Emergency (ER) | payer MEDICARE, MEDICAID ==
[~2019-04-15] VITALS: Ht 149.9 cm; Wt 39.9 kg
[~2019-04-15 01:41] MED LIST: ACET-73 GT; ACET1TAB23 PO; ALPR0.5T8 GT; ASCO500T9 GT; BENZ1TAB7 GT; DOCU-141 GT; FOLI1TAB16 GT; LACT1CAP61 PO; LEVA0.6320 IH; MIDO5TAB4 GT; MULT-439 GT; OMEP20CA11 PO; PRED2.5T GT; PROT946L GT; QUET50TA GT; RXVAN XX; SENN-168 GT
--- NOTE | 2019-04-15 01:53 | NUR ---
BIB [facility] FROM THE [facility] C/O LEAKING GASTROSTOMY TUBE & GASTROTOMY SITE REDNESS. PT AAOX0. PER EMS REPORT PTS G TUBE IS CLOGGED AND REDNESS PRESENT AROUND STOMA. UPON ASSESSMENT G TUBE IS CLOGGED, INTRODUCED AIR AND UNCLOGGED THE G TUBE. GT IS PATENT, NO LEAKING NOTED. NO REDNESS NOTED AT STOMA. STOMA IS PINK WHICH IS EXPECTED. MD AT BEDSIDE FOR EVAL. AWAITING ORDERS.
--- NOTE | 2019-04-15 02:43 | NUR ---
AMBULANCE ETA: [id number]. TRIP #[id number]
--- NOTE | 2019-04-15 02:58 | NUR ---
NEW ETA. 20 MINS
--- NOTE | 2019-04-15 03:27 | NUR ---
SPOKE AND GAVE REPROT TO SIXTO FROM [facility] FOR MALLORIE. PT ON HIS WAY BY AMBULANCE.
[2019-04-15 03:31] VITALS: BP 98/72
== END 2019-04-15 03:31 | disposition home or self-care (01) ==
LOC: ER 01:44
DX: K94.23 Gastrostomy malfunction (principal); K21.9 Gastro-esophageal reflux disease without esophagitis; Z79.899 Other long term (current) drug therapy

== ENCOUNTER 2019-05-02 16:05 | Inpatient (IN) | payer MEDICARE, MEDICAID ==
[~2019-05-02] VITALS: Ht 149.9 cm; Wt 36.7 kg
[2019-05-02] VITALS (16 sets, daily range): BP systolic 84–148; BP diastolic 56–82
[2019-05-02] MEDS ORDERED: IV NS 0.9% 1,000 ML BAG IV ONE (17:00)
[2019-05-02] MEDS ORDERED: PIPERACILLIN /TAZOBACTAM 3.375 G in IV D5W 50 ML IV ONE (17:00)
[2019-05-02] MEDS ORDERED: VANCOMYCIN 1 GM in IV D5W 250 ML IV ONE (17:00)
[2019-05-02 17:09] LABS: BASOPHILS # (AUTO) 0.1 /CMM (0.0-0.2); BASOPHILS % (AUTO) 0.2 % (0.0-2.0); EOSINOPHILS % (AUTO) 0.2 % (0.0-6.0); HEMATOCRIT 32 % (39-51); HEMOGLOBIN 10.5 g/dL (13.5-17.5); LYMPHOCYTES # (AUTO) 1.4 /CMM (0.8-4.8); LYMPHOCYTES % (AUTO) 5.9 % (20.0-44.0); MEAN CORPUSCULAR HGB CONC 33 g/dl (31.0-36.0); MEAN CORPUSCULAR VOLUME 93 fL (80-96); MONOCYTES # (AUTO) 0.5 /CMM (0.1-1.30); MONOCYTES % (AUTO) 2.1 % (2.0-12.0); NEUTROPHILS % (AUTO) 91.6 % (43.0-81.0); PLATELET COUNT (AUTO) 488 /CMM (150-450); RED BLOOD CELL COUNT(AUTO) 3.44 MIL/uL (4.5-6.0)
[2019-05-02 17:26] LABS: ALANINE AMINOTRANSFERASE 25 U/L (12-78); ALBUMIN 1.8 g/dL (3.4-5.0); ALKALINE PHOSPHATASE 102 U/L (46-116); ASPARTATE AMINOTRANSFERASE 20 U/L (15-37); BILIRUBIN,DIRECT 0.1 mg/dL (0.0-0.2); BILIRUBIN,TOTAL 0.7 mg/dL (0.2-1.0); CALCIUM, SERUM 8.8 mg/dL (8.5-10.1); CARBON DIOXIDE 27 mmol/L (21-32); CHLORIDE 96 mmol/L (98-107); CREATININE 0.5 mg/dL (0.6-1.3); GLUCOSE 81 mg/dL (74-106); POTASSIUM 4.2 mmol/L (3.5-5.1); SODIUM SERUM 130 mmol/L (136-145); UREA NITROGEN, BLOOD 25 mg/dL (7-18)
[2019-05-02] MEDS ORDERED: IOHEXOL-300 100 ML VIAL IV ONE (17:53)
[2019-05-02] MEDS ORDERED: IV NS 0.9% 250 ML IV ONE (17:54)
[2019-05-02] MEDS ORDERED: CT SWABBABLE VALVE TRANS SET 1 EA INFUS.SET MC ONE (17:54)
[2019-05-02 17:55] LABS: APPEARANCE,URINE Turbid (CLEAR); BILIRUBIN,URINE SMALL (NEGATIVE); BLOOD, URINE Large Ery/uL (NEGATIVE); COLOR,URINE Other (YELLOW); KETONES,URINE 15 (NEGATIVE); LEUKOCYTE ESTERASE ,URINE Small (NEGATIVE); NITRITE, URINE Negative (NEGATIVE); PH,URINE 5.5 (5.0-8.0); PROTEIN,URINE >=300 mg/dl (NEGATIVE); UGLUCOSE Negative (NEGATIVE); UROBILINOGEN,URINE 0.2 EU/dL (0.2)
[2019-05-02 18:03] LABS: BACTERIA,URINE 1+ /HPF (None Seen); RBC,URINE TOO NUMEROUS TO COUN /HPF (0-2); SQUAMOUS EPITHELIAL CELL,UR Few /HPF (None Seen)
[2019-05-02] MEDS ORDERED: ACETAMINOPHEN 650 MG/SUPP.RECT RC PRN (19:30)
[2019-05-02] MEDS ORDERED: METRONIDAZOLE 500MG/ NS 100ML 500 MG in PREMIX 1 EA IV SCH ×4 (19:30)
[2019-05-02] MEDS ORDERED: NOREPINEPHRINE 8 MG in IV D5W 500 ML IV PRN (19:30)
[2019-05-02] MEDS ORDERED: ONDANSETRON HCL/PF 4 MG/2 ML VIAL IVP PRN (19:30)
[2019-05-02] MEDS ORDERED: FEE PK DOSING 1 MIN EA MC ONE (19:57)
[2019-05-02] MEDS: PANTOPRAZOLE 40 MG VIAL IV SCH (20:31)
[2019-05-02] MEDS: IV NS 0.9% 1,000 ML IV PRN (20:31)
[2019-05-02] MEDS ORDERED: CLINDAMYCIN 600 MG in IV D5W 50 ML IV SCH (21:00)
[2019-05-02] MEDS: VANCOMYCIN 500 MG in IV D5W 100ml IV SCH (21:00)
[2019-05-02] MEDS: PIPERACILLIN /TAZOBACTAM 3.375 G in IV D5W 50 ML IV SCH (23:50)
[2019-05-03] VITALS (49 sets, daily range): BP systolic 74–129; BP diastolic 33–84
[2019-05-03] MEDS: IV NS 0.9% 1,000 ML IV PRN ×3 (03:19→20:09)
[2019-05-03 04:23] LABS: BASOPHILS % (AUTO) 0.2 % (0.0-2.0); EOSINOPHILS % (AUTO) 0.7 % (0.0-6.0); HEMATOCRIT 27 % (39-51); HEMOGLOBIN 8.6 g/dL (13.5-17.5); LYMPHOCYTES % (AUTO) 5.1 % (20.0-44.0); MEAN CORPUSCULAR HGB CONC 33 g/dl (31.0-36.0); MEAN CORPUSCULAR VOLUME 93 fL (80-96); MONOCYTES # (AUTO) 0.4 /CMM (0.1-1.30); MONOCYTES % (AUTO) 1.9 % (2.0-12.0); NEUTROPHILS # (AUTO) 18.5 /CMM (1.8-8.9); NEUTROPHILS % (AUTO) 92.1 % (43.0-81.0); PLATELET COUNT (AUTO) 491 /CMM (150-450); RED BLOOD CELL COUNT(AUTO) 2.86 MIL/uL (4.5-6.0); WHITE BLOOD COUNT (AUTO) 20.1 K/uL (4.3-11.0)
[2019-05-03 04:40] LABS: CALCIUM, SERUM 8.1 mg/dL (8.5-10.1); CREATININE 0.4 mg/dL (0.6-1.3); PHOSPHORUS 2.9 mg/dL (2.5-4.9); POTASSIUM 3.7 mmol/L (3.5-5.1)
[2019-05-03] MEDS: CLINDAMYCIN 600 MG in IV D5W 50 ML IV SCH ×2 (04:43→13:16)
[2019-05-03] MEDS: VANCOMYCIN 500 MG in IV D5W 100ml IV SCH ×3 (04:44→21:36)
[2019-05-03 05:02] LABS: THYROID STIMULATING HORMONE 3.336 uIU/mL (0.358-3.74)
[2019-05-03] MEDS: PIPERACILLIN /TAZOBACTAM 3.375 G in IV D5W 50 ML IV SCH ×3 (06:22→17:10)
[2019-05-03] MEDS: PANTOPRAZOLE 40 MG VIAL IV SCH (08:40)
[2019-05-03] MEDS ORDERED: LIDOCAINE 1%-EPI 1:100,000 20 ML VIAL TP ONE (14:30)
[2019-05-03] MEDS: DAKINS QUARTER STRENGTH (0.125%) 480 ML BOTTLE TOP SCH (14:42)
[2019-05-03] MEDS: LACTOBACILLUS RHAMNOSUS GG 1 EACH CAP.SPRINK PO SCH (17:33)
[2019-05-03] MEDS: CLINDAMYCIN 900 MG in IV D5W 50 ML IV SCH (20:10)
[2019-05-04] VITALS (18 sets, daily range): BP systolic 91–129; BP diastolic 46–81
[2019-05-04] MEDS: PIPERACILLIN /TAZOBACTAM 3.375 G in IV D5W 50 ML IV SCH ×5 (00:02→23:21)
[2019-05-04] MEDS: CLINDAMYCIN 900 MG in IV D5W 50 ML IV SCH ×3 (04:19→21:04)
[2019-05-04 04:44] LABS: CALCIUM, SERUM 8.1 mg/dL (8.5-10.1); CREATININE 0.5 mg/dL (0.6-1.3); POTASSIUM 3.1 mmol/L (3.5-5.1)
[2019-05-04] MEDS ORDERED: DEXTROSE 50%-WATER 50 ML DISP.SYRIN ONE (04:57)
[2019-05-04] MEDS: VANCOMYCIN 500 MG in IV D5W 100ml IV SCH (05:25)
[2019-05-04] MEDS ORDERED: DEXTROSE 50%-WATER 50 ML DISP.SYRIN IVP ONE (05:30)
[2019-05-04] MEDS ORDERED: IV D5/ 0.9% NACL 1,000 ML IV SCH (05:30)
[2019-05-04 08:03] LABS: IRON, SERUM 20 ug/dl (50-175); TOTAL IRON BINDING CAPACITY 83 ug/dl (250-450)
[2019-05-04] MEDS: LACTOBACILLUS RHAMNOSUS GG 1 EACH CAP.SPRINK PO SCH ×2 (08:17→17:28)
[2019-05-04] MEDS: HYDROCORTISONE SOD SUCCINATE 100 MG/2 ML VIAL IV SCH ×3 (08:17→17:28)
[2019-05-04] MEDS: POTASSIUM CL. PREMIX PERIPHER. 50 ML IV SCH ×4 (08:17→13:36)
[2019-05-04] MEDS: PANTOPRAZOLE 40 MG VIAL IV SCH (08:17)
[2019-05-04 08:18] LABS: BASOPHILS # (AUTO) 0.1 /CMM (0.0-0.2); BASOPHILS % (AUTO) 0.3 % (0.0-2.0); EOSINOPHILS % (AUTO) 0.2 % (0.0-6.0); HEMATOCRIT 32 % (39-51); HEMOGLOBIN 10.3 g/dL (13.5-17.5); LYMPHOCYTES # (AUTO) 1.4 /CMM (0.8-4.8); MEAN CORPUSCULAR HGB CONC 32 g/dl (31.0-36.0); MEAN CORPUSCULAR VOLUME 93 fL (80-96); MONOCYTES # (AUTO) 0.5 /CMM (0.1-1.30); MONOCYTES % (AUTO) 2.8 % (2.0-12.0); NEUTROPHILS # (AUTO) 15.6 /CMM (1.8-8.9); NEUTROPHILS % (AUTO) 88.7 % (43.0-81.0); PLATELET COUNT (AUTO) 551 /CMM (150-450); RED BLOOD CELL COUNT(AUTO) 3.44 MIL/uL (4.5-6.0); WHITE BLOOD COUNT (AUTO) 17.6 K/uL (4.3-11.0)
[2019-05-04] MEDS: DAKINS QUARTER STRENGTH (0.125%) 480 ML BOTTLE TOP SCH (08:18)
[2019-05-04] MEDS: MORPHINE SULFATE INJ 2 MG/ML DISP.SYRIN IV PRN (08:20)
[2019-05-04 09:25] LABS: FERRITIN 285 ng/mL (8-388)
[2019-05-04] MEDS: FLUDROCORTISONE 0.1 MG TABLET PO SCH ×3 (12:53→23:36)
[2019-05-04] MEDS: VANCOMYCIN 0.75 GM in IV D5W 250 ML IV SCH ×2 (14:18→21:53)
[2019-05-04] MEDS: JEVITY 1.2 CAL 1,000 ML BOTTLE GT PRN (18:25)
[2019-05-05] MEDS: IV D5/ 0.9% NACL 1,000 ML IV PRN ×2 (02:03→18:23)
[2019-05-05] MEDS: MORPHINE SULFATE INJ 2 MG/ML DISP.SYRIN IV PRN ×2 (04:05→19:50)
[2019-05-05] MEDS: VANCOMYCIN 0.75 GM in IV D5W 250 ML IV SCH (05:21)
[2019-05-05] MEDS: CLINDAMYCIN 900 MG in IV D5W 50 ML IV SCH (05:21)
[2019-05-05] MEDS: PIPERACILLIN /TAZOBACTAM 3.375 G in IV D5W 50 ML IV SCH ×3 (05:21→18:22)
[2019-05-05] MEDS: FLUDROCORTISONE 0.1 MG TABLET PO SCH ×3 (05:44→17:46)
[2019-05-05 06:54] LABS: CALCIUM, SERUM 7.3 mg/dL (8.5-10.1); CREATININE 0.5 mg/dL (0.6-1.3)
[2019-05-05 07:01] LABS: POTASSIUM 2.5 mmol/L (3.5-5.1)
[2019-05-05 08:26] VITALS: BP 100/70
[2019-05-05] MEDS: PANTOPRAZOLE 40 MG VIAL IV SCH (08:55)
[2019-05-05] MEDS: LACTOBACILLUS RHAMNOSUS GG 1 EACH CAP.SPRINK PO SCH ×2 (08:55→17:46)
[2019-05-05] MEDS: DAKINS QUARTER STRENGTH (0.125%) 480 ML BOTTLE TOP SCH (08:55)
[2019-05-05] MEDS ORDERED: POTASSIUM CHLORIDE 20 MEQ TAB.PRT.SR PO ONE (10:00)
[2019-05-05] MEDS ORDERED: POTASSIUM CHLORIDE 20 MEQ POWDER PACKET GT ONE (10:30)
[2019-05-05] MEDS: HYDROCORTISONE SOD SUCCINATE 100 MG/2 ML VIAL IV SCH ×3 (10:44→17:45)
[2019-05-05 16:19] VITALS: BP 129/107
[2019-05-06] MEDS: IV D5/ 0.9% NACL 1,000 ML IV PRN ×2 (01:19→18:23)
[2019-05-06] MEDS: FLUDROCORTISONE 0.1 MG TABLET PO SCH ×5 (01:21→23:26)
[2019-05-06] MEDS: PIPERACILLIN /TAZOBACTAM 3.375 G in IV D5W 50 ML IV SCH ×5 (01:21→23:26)
[2019-05-06 06:44] LABS: BASOPHILS # (AUTO) 0.1 /CMM (0.0-0.2); BASOPHILS % (AUTO) 0.7 % (0.0-2.0); HEMATOCRIT 32 % (39-51); HEMOGLOBIN 10.5 g/dL (13.5-17.5); LYMPHOCYTES # (AUTO) 1.4 /CMM (0.8-4.8); LYMPHOCYTES % (AUTO) 18.5 % (20.0-44.0); MEAN CORPUSCULAR HGB CONC 33 g/dl (31.0-36.0); MEAN CORPUSCULAR VOLUME 90 fL (80-96); MONOCYTES # (AUTO) 0.6 /CMM (0.1-1.30); MONOCYTES % (AUTO) 7.7 % (2.0-12.0); NEUTROPHILS # (AUTO) 5.6 /CMM (1.8-8.9); NEUTROPHILS % (AUTO) 73.1 % (43.0-81.0); PLATELET COUNT (AUTO) 597 /CMM (150-450); RED BLOOD CELL COUNT(AUTO) 3.54 MIL/uL (4.5-6.0); WHITE BLOOD COUNT (AUTO) 7.6 K/uL (4.3-11.0)
[2019-05-06 07:05] LABS: CALCIUM, SERUM 8.1 mg/dL (8.5-10.1); CREATININE 0.5 mg/dL (0.6-1.3); POTASSIUM 3.6 mmol/L (3.5-5.1)
[2019-05-06 08:00] VITALS: BP 103/69
[2019-05-06] MEDS: HYDROCORTISONE SOD SUCCINATE 100 MG/2 ML VIAL IV SCH ×2 (09:00→12:00)
[2019-05-06] MEDS: PANTOPRAZOLE 40 MG VIAL IV SCH (09:21)
[2019-05-06] MEDS: LACTOBACILLUS RHAMNOSUS GG 1 EACH CAP.SPRINK PO SCH ×2 (09:21→16:53)
[2019-05-06] MEDS: DAKINS QUARTER STRENGTH (0.125%) 480 ML BOTTLE TOP SCH (09:21)
[2019-05-06] MEDS: NEOMY SULF/BACITRAC ZN/POLY 15 GM TUBE TP SCH (15:10)
[2019-05-06 16:00] VITALS: BP 120/72
[2019-05-06 20:00] VITALS: BP 119/72
[2019-05-07] MEDS: IV D5/ 0.9% NACL 1,000 ML IV PRN ×3 (04:13→18:13)
[2019-05-07] MEDS: JEVITY 1.2 CAL 1,000 ML BOTTLE GT PRN ×2 (04:13→17:54)
[2019-05-07 04:35] VITALS: BP 118/69
[2019-05-07] MEDS: PIPERACILLIN /TAZOBACTAM 3.375 G in IV D5W 50 ML IV SCH ×2 (05:01→11:56)
[2019-05-07] MEDS: FLUDROCORTISONE 0.1 MG TABLET PO SCH ×3 (05:01→17:54)
[2019-05-07 07:10] LABS: CALCIUM, SERUM 7.6 mg/dL (8.5-10.1); CREATININE 0.4 mg/dL (0.6-1.3)
[2019-05-07 08:00] VITALS: BP 148/73
[2019-05-07] MEDS: LACTOBACILLUS RHAMNOSUS GG 1 EACH CAP.SPRINK PO SCH ×2 (09:26→17:54)
[2019-05-07] MEDS: PANTOPRAZOLE 40 MG VIAL IV SCH (09:26)
[2019-05-07] MEDS: DAKINS QUARTER STRENGTH (0.125%) 480 ML BOTTLE TOP SCH (09:26)
[2019-05-07] MEDS: HYDROCORTISONE SOD SUCCINATE 100 MG/2 ML VIAL IV SCH (09:26)
[2019-05-07] MEDS: NEOMY SULF/BACITRAC ZN/POLY 15 GM TUBE TP SCH (09:27)
[2019-05-07] MEDS ORDERED: POTASSIUM CHLORIDE 20 MEQ TAB.PRT.SR PO ONE (09:30)
[2019-05-07 16:00] VITALS: BP 119/66
[2019-05-07] MEDS ORDERED: MEROPENEM 500 MG in IV NS 0.9% 50 ML IV SCH (16:30)
[2019-05-07] MEDS: MEROPENEM 500 MG in IV NS 0.9% 100 ML IV SCH (17:54)
[2019-05-07] MEDS: PROSOURCE / PROSTAT (PYXIS) 30 ML UDC GT SCH (17:56)
[2019-05-07 20:00] VITALS: BP 127/69
[2019-05-08] MEDS: MEROPENEM 500 MG in IV NS 0.9% 100 ML IV SCH ×3 (01:00→16:18)
[2019-05-08 07:05] LABS: CALCIUM, SERUM 7.6 mg/dL (8.5-10.1); CREATININE 0.4 mg/dL (0.6-1.3); POTASSIUM 3.1 mmol/L (3.5-5.1)
[2019-05-08 07:51] VITALS: BP 100/68
[2019-05-08] MEDS: FLUDROCORTISONE 0.1 MG TABLET PO SCH ×2 (08:20→16:18)
[2019-05-08] MEDS: LACTOBACILLUS RHAMNOSUS GG 1 EACH CAP.SPRINK PO SCH ×2 (08:20→16:18)
[2019-05-08] MEDS: HYDROCORTISONE SOD SUCCINATE 100 MG/2 ML VIAL IV SCH (08:20)
[2019-05-08] MEDS: PANTOPRAZOLE 40 MG VIAL IV SCH (08:22)
[2019-05-08] MEDS: NEOMY SULF/BACITRAC ZN/POLY 15 GM TUBE TP SCH (08:28)
[2019-05-08] MEDS: DAKINS QUARTER STRENGTH (0.125%) 480 ML BOTTLE TOP SCH (08:29)
[2019-05-08] MEDS: PROSOURCE / PROSTAT (PYXIS) 30 ML UDC GT SCH ×2 (08:31→16:18)
[2019-05-08] MEDS: POTASSIUM CHLORIDE 20 MEQ POWDER PACKET GT SCH (10:58)
[2019-05-08] MEDS: IV D5/ 0.9% NACL 1,000 ML IV PRN (13:02)
[2019-05-08 16:00] VITALS: BP 130/70
[2019-05-08] MEDS: JEVITY 1.2 CAL 1,000 ML BOTTLE GT PRN (18:24)
[2019-05-08 20:00] VITALS: BP 135/72
[2019-05-09] MEDS: IV D5/ 0.9% NACL 1,000 ML IV PRN ×2 (00:42→15:52)
[2019-05-09] MEDS: MEROPENEM 500 MG in IV NS 0.9% 100 ML IV SCH ×3 (00:42→16:31)
[2019-05-09 04:40] VITALS: BP 121/69
[2019-05-09 07:00] VITALS: BP 115/73
[2019-05-09] MEDS: PANTOPRAZOLE 40 MG VIAL IV SCH (08:45)
[2019-05-09] MEDS: POTASSIUM CHLORIDE 20 MEQ POWDER PACKET GT SCH (08:45)
[2019-05-09] MEDS: FLUDROCORTISONE 0.1 MG TABLET PO SCH (08:45)
[2019-05-09] MEDS: LACTOBACILLUS RHAMNOSUS GG 1 EACH CAP.SPRINK PO SCH ×2 (08:45→16:23)
[2019-05-09] MEDS: NEOMY SULF/BACITRAC ZN/POLY 15 GM TUBE TP SCH (08:46)
[2019-05-09] MEDS: DAKINS QUARTER STRENGTH (0.125%) 480 ML BOTTLE TOP SCH (08:46)
[2019-05-09] MEDS: PROSOURCE / PROSTAT (PYXIS) 30 ML UDC GT SCH ×2 (08:46→16:23)
[2019-05-09] MEDS ORDERED: POTASSIUM CHLORIDE 20 MEQ POWDER PACKET GT SCH (09:00)
[2019-05-09] MEDS ORDERED: LORAZEPAM 1 MG TABLET GT PRN (11:30)
[2019-05-09 12:00] VITALS: BP 110/78
[2019-05-09 12:51] LABS: BASOPHILS % (AUTO) 0.6 % (0.0-2.0); HEMATOCRIT 29 % (39-51); HEMOGLOBIN 9.8 g/dL (13.5-17.5); LYMPHOCYTES # (AUTO) 1.8 /CMM (0.8-4.8); LYMPHOCYTES % (AUTO) 24.9 % (20.0-44.0); MEAN CORPUSCULAR HGB CONC 34 g/dl (31.0-36.0); MEAN CORPUSCULAR VOLUME 92 fL (80-96); MONOCYTES # (AUTO) 0.6 /CMM (0.1-1.30); MONOCYTES % (AUTO) 8.2 % (2.0-12.0); NEUTROPHILS # (AUTO) 4.7 /CMM (1.8-8.9); NEUTROPHILS % (AUTO) 65.3 % (43.0-81.0); PLATELET COUNT (AUTO) 524 /CMM (150-450); RED BLOOD CELL COUNT(AUTO) 3.18 MIL/uL (4.5-6.0); WHITE BLOOD COUNT (AUTO) 7.1 K/uL (4.3-11.0)
[2019-05-09 12:58] LABS: CALCIUM, SERUM 7.5 mg/dL (8.5-10.1); CREATININE 0.4 mg/dL (0.6-1.3); POTASSIUM 4.3 mmol/L (3.5-5.1)
[2019-05-09 15:06] LABS: NEUTROPHILS % (MANUAL) 68 (42-76)
[2019-05-09 15:07] LABS: EOSINOPHILS % (MANUAL) 1 % (0-4); LYMPHOCYTES % (MANUAL) 24 % (16-48); MONOCYTES % (MANUAL) 7 % (0-11.0)
[2019-05-09 16:00] VITALS: BP 111/75
[2019-05-09] MEDS: JEVITY 1.2 CAL 1,000 ML BOTTLE GT PRN (19:22)
[2019-05-09 20:00] VITALS: BP 122/89
[2019-05-10] MEDS: MEROPENEM 500 MG in IV NS 0.9% 100 ML IV SCH ×3 (01:24→16:34)
[2019-05-10 04:00] VITALS: BP 119/72
[2019-05-10] MEDS: IV D5/ 0.9% NACL 1,000 ML IV PRN (05:18)
[2019-05-10 08:00] VITALS: BP 122/79
[2019-05-10] MEDS: POTASSIUM CHLORIDE 20 MEQ POWDER PACKET GT SCH (09:06)
[2019-05-10] MEDS: PANTOPRAZOLE 40 MG VIAL IV SCH (09:06)
[2019-05-10] MEDS: PROSOURCE / PROSTAT (PYXIS) 30 ML UDC GT SCH ×2 (09:06→16:31)
[2019-05-10] MEDS: LACTOBACILLUS RHAMNOSUS GG 1 EACH CAP.SPRINK PO SCH ×2 (09:06→16:33)
[2019-05-10] MEDS: DAKINS QUARTER STRENGTH (0.125%) 480 ML BOTTLE TOP SCH (09:07)
[2019-05-10] MEDS: NEOMY SULF/BACITRAC ZN/POLY 15 GM TUBE TP SCH (09:07)
[2019-05-10 16:00] VITALS: BP_SYST 104; BP_SYST 110; BP_DIAS 63; BP_DIAS 66
== END 2019-05-10 16:48 | DRG 853 ==
LOC: ER 16:09 → TELE1 18:12 → ICU 19:36 → MEDSG1 05-04 10:51
PROVIDERS: ADMIT Nurse Practitioner Acute Care
PROC: 0QB10ZZ Excision of Sacrum, Open Approach (ICD-10-PCS; principal; 2019-05-04)
PROC: 05H633Z Insertion of Infusion Device into Left Subclavian Vein, Percutaneous Approach (ICD-10-PCS; 2019-05-06)
PROC: 0J9L3ZZ Drainage of Right Upper Leg Subcutaneous Tissue and Fascia, Percutaneous Approach (ICD-10-PCS; 2019-05-09)
DX: A41.9 Sepsis, unspecified organism (principal); L89.154 Pressure ulcer of sacral region, stage 4; N17.0 Acute kidney failure with tubular necrosis; R65.21 Severe sepsis with septic shock; G93.41 Metabolic encephalopathy; E43 Unspecified severe protein-calorie malnutrition; M72.6 Necrotizing fasciitis; E87.1 Hypo-osmolality and hyponatremia; D68.59 Other primary thrombophilia; L02.415 Cutaneous abscess of right lower limb; R64 Cachexia; E27.40 Unspecified adrenocortical insufficiency; E87.2 Acidosis; N39.0 Urinary tract infection, site not specified; K21.9 Gastro-esophageal reflux disease without esophagitis; E86.0 Dehydration; E87.6 Hypokalemia; Z93.1 Gastrostomy status; Z86.718 Personal history of other venous thrombosis and embolism; B96.5 Pseudomonas (aeruginosa) (mallei) (pseudomallei) as the cause of diseases classified elsewhere; Z74.01 Bed confinement status; R13.10 Dysphagia, unspecified; Q90.9 Down syndrome, unspecified; D47.3 Essential (hemorrhagic) thrombocythemia; H54.61 Unqualified visual loss, right eye, normal vision left eye; E88.09 Other disorders of plasma-protein metabolism, not elsewhere classified; M62.50 Muscle wasting and atrophy, not elsewhere classified, unspecified site; K56.41 Fecal impaction; N48.22 Cellulitis of corpus cavernosum and penis; N49.2 Inflammatory disorders of scrotum; Z87.01 Personal history of pneumonia (recurrent); E86.1 Hypovolemia; B96.4 Proteus (mirabilis) (morganii) as the cause of diseases classified elsewhere; L90.5 Scar conditions and fibrosis of skin; S50.811A Abrasion of right forearm, initial encounter; S70.312A Abrasion, left thigh, initial encounter; S30.813A Abrasion of scrotum and testes, initial encounter; X58.XXXA Exposure to other specified factors, initial encounter; Y93.9 Activity, unspecified; Y92.129 Unspecified place in nursing home as the place of occurrence of the external cause; L89.890 Pressure ulcer of other site, unstageable; M24.571 Contracture, right ankle; M24.572 Contracture, left ankle; N31.9 Neuromuscular dysfunction of bladder, unspecified; N39.498 Other specified urinary incontinence; F41.9 Anxiety disorder, unspecified; M86.9 Osteomyelitis, unspecified
CPT/HCPCS: 36415; 71045-TC; 76882; 76942-TC; 80048-TC; 80076-TC; 80202-TC; 81000-TC; 82533; 82728-TC; 82962-TC; 83540-TC; 83605-TC; 83735-TC; 84100-TC; 84443-TC; 84484-TC; 85025-TC; 85652-TC; 85730-TC; 87040-TC; 87070-TC; 87075-TC; 87081-TC; 87086-TC; 87102-TC; 87186-TC; 93307-TC; 93970-TC; A4216; A6253; A6403; C9113; G0378; J1720; J2185; J2270; J2543; J3370; J3480; J3490; J7030; J7042; J7050; J7060; Q9967

== ENCOUNTER 2019-06-27 09:13 | Emergency (ER) | payer MEDICARE, OTHER ==
[~2019-06-27] VITALS: Ht 149.9 cm; Wt 33.1 kg
[~2019-06-27 09:13] MED LIST changes: -ACET1TAB23 PO; +ASCO500T20 GT; -ASCO500T9 GT; -LACT1CAP61 PO; -LEVA0.6320 IH; -OMEP20CA11 PO; -RXVAN XX; -SENN-168 GT; +SENN-261 GT
--- NOTE | 2019-06-27 09:26 | NUR ---
Marine, from [facility] ([place]), came in for GT replacement F20,staff not sure when it came off, and put it back in and leaking. alert to touch non verbal. breathing even and unlabored. pt is slightly combative per report that his baseline. waitng to be seen by
--- NOTE | 2019-06-27 09:42 | NUR ---
repleaced GTube with a 20F intact
--- NOTE | 2019-06-27 09:50 | NUR ---
[facility] CALLED. ETA 20MINS. TRIP # [id number]
--- NOTE | 2019-06-27 10:00 | NUR ---
X-RAY TECH AT BEDSIDE TO VERIFY PLACEMENT
[2019-06-27] MEDS ORDERED: DIATR MEGLU/DIATRIZOATE SODIUM 30 ML BOTTLE (GASTROGRAPHIN) ONE (10:04)
--- NOTE | 2019-06-27 10:33 | NUR ---
EMT AT BEDSIDE TO TAKE PT BACK TO [facility]
--- NOTE | 2019-06-27 10:43 | NUR ---
Patient discharged to home in stable condition. Written and verbal after care instructions given. Patient verbalizes understanding of instruction.
[2019-06-27 10:53] VITALS: BP 132/90
[2019-10-04] MEDS ORDERED: PIPE3.376 IV (11:22)
[2019-10-04] MEDS ORDERED: Hydrogel Dressing TP (11:22)
[2019-10-04] MEDS ORDERED: MUPI22OI7 (11:22)
[2019-10-04] MEDS ORDERED: INSU100V28 SQ (11:22)
[2019-10-04] MEDS ORDERED: RXVAN XX (11:22)
[2019-10-04] MEDS ORDERED: Nepro GT (11:22)
[2019-10-04] MEDS ORDERED: Blood Sugar Diagnostic IN (11:22)
== END 2019-06-27 10:55 ==
LOC: ER 09:21
DX: K94.23 Gastrostomy malfunction (principal); K21.9 Gastro-esophageal reflux disease without esophagitis; Z79.899 Other long term (current) drug therapy
CPT/HCPCS: 43762; 74018; 99284; Q9963

== ENCOUNTER 2019-09-28 13:26 | Inpatient (IN) | payer MEDICARE, OTHER ==
[~2019-09-28] VITALS: Ht 149.9 cm; Wt 34.0 kg
--- NOTE | 2019-09-28 13:34 | NUR ---
BIB [facility] FOR G TUBE DISLODGEMENT AND R HIP SURGICAL SITE DRAINAGE, TO ER BED 9, HOOKED TO MONITOR, CHANGED TO HOSP GOWN, PATIENT CLINICALLY BLIND, PROVIDED W WARM BLANKET, AWAITING MD GEORGE
--- NOTE | 2019-09-28 14:22 | NUR ---
DR DOMINGO AT BEDSIDE
[2019-09-28 14:47] LABS: BASOPHILS # (AUTO) 0.1 /CMM (0.0-0.2); BASOPHILS % (AUTO) 0.7 % (0.0-2.0); EOSINOPHILS % (AUTO) 1.5 % (0.0-6.0); HEMATOCRIT 30 % (39-51); HEMOGLOBIN 9.4 g/dL (13.5-17.5); LYMPHOCYTES # (AUTO) 2.1 /CMM (0.8-4.8); LYMPHOCYTES % (AUTO) 29.4 % (20.0-44.0); MEAN CORPUSCULAR HGB CONC 32 g/dl (31.0-36.0); MEAN CORPUSCULAR VOLUME 89 fL (80-96); MONOCYTES # (AUTO) 0.4 /CMM (0.1-1.30); MONOCYTES % (AUTO) 5.4 % (2.0-12.0); NEUTROPHILS # (AUTO) 4.4 /CMM (1.8-8.9); PLATELET COUNT (AUTO) 492 /CMM (150-450); RED BLOOD CELL COUNT(AUTO) 3.33 MIL/uL (4.5-6.0)
[2019-09-28 14:54] LABS: CREATININE 0.5 mg/dL (0.6-1.3); POTASSIUM 5.8 mmol/L (3.5-5.1)
[2019-09-28 15:00] LABS: ALBUMIN 2.4 g/dL (3.4-5.0); BILIRUBIN,TOTAL 0.4 mg/dL (0.2-1.0); TOTAL PROTEIN, SERUM 9.7 g/dL (6.4-8.2)
[2019-09-28 15:12] LABS: CALCIUM, SERUM 9.2 mg/dL (8.5-10.1)
[2019-09-28] MEDS ORDERED: DIPH25CA51 GT (15:45)
[2019-09-28] MEDS ORDERED: ACID1TAB12 GT (15:45)
[2019-09-28] MEDS ORDERED: ACET-868 GT (15:45)
[2019-09-28] MEDS ORDERED: NUT.237L67 GT (15:45)
[2019-09-28] MEDS ORDERED: ACET650S11 RC (15:45)
[2019-09-28] MEDS ORDERED: PANT40SU2 GT (15:45)
--- NOTE | 2019-09-28 15:47 | NUR ---
PAGED [facility].
--- NOTE | 2019-09-28 16:53 | NUR ---
NURSING SUP GAVE M/S BED 324-1.
--- NOTE | 2019-09-28 16:58 | NUR ---
REPORT GIVEN TO PANCHITO STEEL OF [facility] UNIT
--- NOTE | 2019-09-28 17:26 | NUR ---
REPORT RECEIVED FROM [facility] IN ER.
[2019-09-28] MEDS ORDERED: Sodium Bicarbonate 50 MEQ in IV NS 0.9% 1,000 ML IV PRN (17:30)
[2019-09-28] MEDS ORDERED: ACETAMINOPHEN 650 MG/SUPP.RECT RC PRN (17:30)
[2019-09-28] MEDS ORDERED: VANCOMYCIN HCL 1.25 GM in IV D5W 260 ML IV ONE (17:30)
[2019-09-28] MEDS ORDERED: ONDANSETRON HCL/PF 4 MG/2 ML VIAL IVP PRN (17:30)
[2019-09-28] MEDS ORDERED: Z GUARD REMEDY 2 OZ OINT TP PRN (17:30)
[2019-09-28] MEDS ORDERED: FEE PK DOSING 1 MIN EA MC ONE (18:12)
--- NOTE | 2019-09-28 18:13 | NUR ---
MS/RN ADMITTING NOTE Patient is in bed, A/O x0, nonverbal, moans frequently. Patient is in no acute distress, no SOB, saturating 96% on RA. Vital signs BP 91/53, HR 68, RR 16, T98.6. Photos taken and placed in chart. IV line in the LFA #22g is clean and patent. G-tube noted; clamped, 0ml residual. Patient is NPO per MD order. Bed is in lowest position, side rails x3 in upright position, sitter at the bedside. Fall, safety and aspiration precautions enforced. Will endorse to operation shift supervisor.
[2019-09-28] MEDS: IV D5/ 0.9% NACL 1,000 ML IV PRN (18:32)
[2019-09-28] MEDS: PIPERACILLIN /TAZOBACTAM 3.375 G in IV D5W 50 ML IV SCH ×2 (18:32→23:33)
--- NOTE | 2019-09-28 18:47 | NUR ---
MS/RN NOTE Patient started on Zosyn IV. Pageab SETH and MD stated that sodium bicarb to be bolus/wide open. Will endorse to dental laboratory supervisor.
--- NOTE | 2019-09-28 19:15 | NUR ---
MS RN NOTES RECEIVED ON BED,ALERT,NON VERBAL,MOANS.WITH KNOWN HX OF DOWN SYNDROME,BOTH EYES BLIND.IVF INFUSING ON LEFT FOREARM.IN ABX INFUSING IVPB.SITTER AT BEDSIDE.PATIENT WITH TENDENCY TO PULL OUT IV TUBINGS.CHAWLA CATH IN PLACE DRAINING YELLOWISH OUTPUT.WILL CONTINUE TO MONITOR STATUS.
[2019-09-28 19:25] VITALS: BP 91/53
--- NOTE | 2019-09-28 19:29 | NUR ---
REPORT GIVEN TO LUIS E STEEL FOR MALLORIE.
--- NOTE | 2019-09-28 19:50 | NUR ---
MS/RN NOTE wound culture right hip sent to lab
[2019-09-28 20:00] VITALS: BP 101/52
[2019-09-28] MEDS: VANCOMYCIN 500 MG in IV D5W 100 ML IV SCH (20:42)
--- NOTE | 2019-09-28 20:45 | NUR ---
MS RN NOTES NEW SALINE LOCK #20 PLACE ON RIGHT HAND,SODIUM BICARB 1 LITER STARTED OPEN WIDE ORDERED.
--- NOTE | 2019-09-29 01:00 | NUR ---
MS RN NOTES NOTED GT FLUSHABLE WITH 120ML WATER.ABDOMINAL BINDER IN PLACE.
[2019-09-29] MEDS: PIPERACILLIN /TAZOBACTAM 3.375 G in IV D5W 50 ML IV SCH ×4 (05:36→23:24)
[2019-09-29] MEDS: VANCOMYCIN 500 MG in IV D5W 100 ML IV SCH ×2 (06:04→18:16)
--- NOTE | 2019-09-29 06:21 | NUR ---
MS RN NOTES MOANS AT TIME.IVF IN PROGRESS.IV ABX TOLERATED WELL.GT NO EVIDENCE OF BLOCKAGE.KEPT NPO ORDERED.URINE SPECIMEN STILL NEEDED FOR ANALYSIS AND CULTURE.IN NO ACUTE DISTRESS.
[2019-09-29 06:41] LABS: BASOPHILS % (AUTO) 1.4 % (0.0-2.0); EOSINOPHILS % (AUTO) 1.5 % (0.0-6.0); HEMATOCRIT 25 % (39-51); HEMOGLOBIN 8.2 g/dL (13.5-17.5); LYMPHOCYTES # (AUTO) 1.3 /CMM (0.8-4.8); LYMPHOCYTES % (AUTO) 37.4 % (20.0-44.0); MEAN CORPUSCULAR HGB CONC 32 g/dl (31.0-36.0); MEAN CORPUSCULAR VOLUME 88 fL (80-96); MONOCYTES # (AUTO) 0.3 /CMM (0.1-1.30); NEUTROPHILS # (AUTO) 1.8 /CMM (1.8-8.9); NEUTROPHILS % (AUTO) 51.7 % (43.0-81.0); PLATELET COUNT (AUTO) 434 /CMM (150-450); WHITE BLOOD COUNT (AUTO) 3.4 K/uL (4.3-11.0)
[2019-09-29 06:57] LABS: CALCIUM, SERUM 8.1 mg/dL (8.5-10.1); CREATININE 0.5 mg/dL (0.6-1.3); MAGNESIUM 2.1 mg/dL (1.8-2.4); PHOSPHORUS 2.6 mg/dL (2.5-4.9); POTASSIUM 4.5 mmol/L (3.5-5.1)
[2019-09-29 07:01] LABS: THYROID STIMULATING HORMONE 3.55 uIU/mL (0.358-3.74)
--- NOTE | 2019-09-29 07:30 | NUR ---
MS RN NOTES RECEIVED ON BED RESTING COMFORTABLY IN MODERATE HIGH BACK REST, SITTER AT BEDSIDE. NO SIGNS OF DISTRESS NOTED AT THIS TIME. IVF INFUSING ON LEFT FOREARM .CHAWLA CATH IN PLACE DRAINING YELLOWISH OUTPUT. WILL CONTINUE TO MONITOR.
[2019-09-29 08:00] VITALS: BP 101/52
[2019-09-29] MEDS: PANTOPRAZOLE 40 MG VIAL IV SCH (09:00)
[2019-09-29] MEDS: IV D5/ 0.9% NACL 1,000 ML IV PRN (09:39)
--- NOTE | 2019-09-29 10:24 | NUR ---
WOUND CARE CONSULT; PT FOLLOWED BY SURGICAL TEAM FOR WOUND CARE. DEFER TO SURGICAL TEAM FOR WOUND TREATMENT PLAN. WILL SEE PRN. DISCUSSED SKIN PROTECTION WITH NURSING STAFF. ISOFLEX LOW AIRLOSS BED TO BE PLACED.
[2019-09-29 11:32] LABS: APPEARANCE,URINE CLOUDY (CLEAR); COLOR,URINE YELLOW (YELLOW); PROTEIN,URINE 1+ mg/dl (NEGATIVE); UGLUCOSE NEGATIVE (NEGATIVE)
[2019-09-29 11:33] LABS: BILIRUBIN,URINE NEGATIVE (NEGATIVE); BLOOD, URINE NEGATIVE Ery/uL (NEGATIVE); KETONES,URINE NEGATIVE (NEGATIVE); LEUKOCYTE ESTERASE ,URINE 1+ (NEGATIVE); NITRITE, URINE POSITIVE (NEGATIVE); UROBILINOGEN,URINE 0.2 EU/dL (0.2)
[2019-09-29 11:35] LABS: RBC,URINE 0-2 /HPF (0-2)
[2019-09-29 11:36] LABS: BACTERIA,URINE Few /HPF (None Seen); SQUAMOUS EPITHELIAL CELL,UR Moderate /HPF (None Seen); WBC,URINE 21-50 /HPF (0-3)
--- NOTE | 2019-09-29 12:26 | NUR ---
RN NOTE CONTACTED MD IF HE WANTS PATIENT TO BE ON ANTICOAGULANT FOR VTE PREVENTION; PER MD, PATIENT DOES NOT NEED TO BE ON ANTICOAGULANTS.
[2019-09-29] MEDS: HYDROGEL DRESSING 90 GM TUBE TP SCH (14:53)
[2019-09-29 16:00] VITALS: BP 94/74
--- NOTE | 2019-09-29 19:35 | NUR ---
MS RN NOTES PATIENT ON BED RESTING COMFORTABLY IN MODERATE HIGH BACK REST, SITTER AT BEDSIDE. NO SIGNS OF DISTRESS NOTED THROUGHOUT THE SHIFT. S/P GTUBE REPLACEMENT, PER MD WATER AND MEDS ONLY. IVF INFUSING ON LEFT FOREARM, INTACT AND PATENT. CHAWLA CATH IN PLACE DRAINING YELLOWISH OUTPUT. SAFETY MEASURES IN PLACE, WILL ENDORSE TO DURALUMIN METALWORKER NURSE FOR MALLORIE.
--- NOTE | 2019-09-29 19:40 | NUR ---
MS RN OPENING NOTES PATIENT RECEIVED RESTING IN BED A/O X 0, NON VERBAL. PATIENT STABLE ON RA WITH BREATHING EVEN AND UNLABORED, NO SOB NOTED. NO SIGNS OF ACUTE DISTRESS. NO COMPLAINTS OF PAIN OR DISCOMFORT, NO FACIAL GRIMACING OR MOANING NOTED. CHAWLA CATHETER NOTED AND IN PLACE. GTUBE NOTED AND IN PLACE PROTECTED WITH ABDOMINAL WRAP. IV LOCATED ON L FA RUNNING D5NS. SAFETY PRECAUTIONS IN PLACE WITH BED IN LOWEST POSITION, CALL LIGHT WITHIN REACH, BREAKS ON, SIDE RAILS UP. WILL CONTINUE TO MONITOR THROUGHOUT THE SHIFT.
[2019-09-29 20:00] VITALS: BP 94/78
[2019-09-30] MEDS: IV D5/ 0.9% NACL 1,000 ML IV PRN (04:56)
[2019-09-30] MEDS: PIPERACILLIN /TAZOBACTAM 3.375 G in IV D5W 50 ML IV SCH ×4 (05:01→23:29)
[2019-09-30 05:14] LABS: BASOPHILS # (AUTO) 0.1 /CMM (0.0-0.2); HEMATOCRIT 25 % (39-51); HEMOGLOBIN 7.9 g/dL (13.5-17.5); LYMPHOCYTES # (AUTO) 1.4 /CMM (0.8-4.8); LYMPHOCYTES % (AUTO) 34.6 % (20.0-44.0); MEAN CORPUSCULAR HGB CONC 31 g/dl (31.0-36.0); MEAN CORPUSCULAR VOLUME 89 fL (80-96); MONOCYTES # (AUTO) 0.3 /CMM (0.1-1.30); MONOCYTES % (AUTO) 7.2 % (2.0-12.0); NEUTROPHILS # (AUTO) 2.2 /CMM (1.8-8.9); NEUTROPHILS % (AUTO) 54.2 % (43.0-81.0); PLATELET COUNT (AUTO) 420 /CMM (150-450); RED BLOOD CELL COUNT(AUTO) 2.87 MIL/uL (4.5-6.0); WHITE BLOOD COUNT (AUTO) 4.1 K/uL (4.3-11.0)
[2019-09-30 05:21] LABS: CALCIUM, SERUM 8.3 mg/dL (8.5-10.1); CREATININE 0.6 mg/dL (0.6-1.3); POTASSIUM 4.4 mmol/L (3.5-5.1)
[2019-09-30] MEDS: VANCOMYCIN 500 MG in IV D5W 100 ML IV SCH ×3 (05:56→22:11)
--- NOTE | 2019-09-30 06:41 | NUR ---
MS RN CLOSING NOTES PATIENT RESTING IN BED A/O X 0, NON VERBAL. PATIENT STABLE ON RA WITH BREATHING EVEN AND UNLABORED, NO SOB NOTED. NO SIGNS OF ACUTE DISTRESS. NO COMPLAINTS OF PAIN OR DISCOMFORT, NO FACIAL GRIMACING OR MOANING NOTED. CHAWLA CATHETER NOTED AND IN PLACE WITH CLEAR YELLOW URINE. GTUBE NOTED AND IN PLACE PROTECTED WITH ABDOMINAL WRAP. IV LOCATED ON L FA RUNNING D5NS. SAFETY PRECAUTIONS IN PLACE WITH BED IN LOWEST POSITION, CALL LIGHT WITHIN REACH, BREAKS ON, SIDE RAILS UP. ALL NEEDS ATTENDED TO. PATIENT WAS KEPT CLEAN AND DRY THROUGHOUT THE NIGHT. WILL ENDORSE TO ONCOMING SHIFT ABOUT [place].
[2019-09-30 08:00] VITALS: BP 81/47
--- NOTE | 2019-09-30 08:00 | NUR ---
MS RN OPENINGNOTES RECEIVED PT IN BED SLEEPING. RESTING COMFORTABLY. PT IS NON VERBAL. LEGALLY BLIND. NO CARDIAC OR RESP DISTRESS NOTED. STABLE ON RA WITH BREATHING EVEN AND UNLABORED, NO SOB NOTED. NO COMPLAINTS OF PAIN OR DISCOMFORT, NO FACIAL GRIMACING OR MOANING NOTED. CHAWLA CATHETER IN PLACE WITH CLEAR YELLOW URINE. GTUBE NOTED AND IN PLACE PROTECTED WITH ABDOMINAL WRAP. GTUBE SITE. INTACT AND PATENT. FLUSHING WELL. IV ACCESS NOTED ON L FA RUNNING WITH D5NS AT 100ML/HR . SAFETY PRECAUTIONS IN PLACE WITH BED IN LOWEST POSITION, CALL LIGHT WITHIN REACH, BREAKS ON, SIDE RAILS UP. ALL NEEDS ATTENDED TO. WILL CONT TO MONITOR.
[2019-09-30] MEDS: HYDROGEL DRESSING 90 GM TUBE TP SCH (08:15)
[2019-09-30] MEDS: PANTOPRAZOLE 40 MG VIAL IV SCH (08:15)
--- NOTE | 2019-09-30 15:45 | NUR ---
GTUBE FEEDING ASKED DR. PARIS IF HE WANTS THE FEEDING TO BE STARTED. PER DR. PARIS, HE WANTS TO WAIT FOR A FEW DAYS BEFORE STARTING THE FEEDING.
--- NOTE | 2019-09-30 15:51 | NUR ---
[facility] FOLLOWED UP WITH PHARMACY REGARDING VANCO DUE AT 3PM. PER ELAN, THEY WILL DELIVER.
--- NOTE | 2019-09-30 16:00 | NUR ---
[facility] F/U WITH PHARMACY. SPOKE TO ELAN RICHEY AT 3PM. THEY STATED, THEY WILL DELIVER.
--- NOTE | 2019-09-30 17:00 | NUR ---
VITALS VITAL SIGNS CHECKED. PT AFEBRILE AT 98.7, 76, 101/67, 18, 98% ROOM AIR. NO COUGHING OR SOB NOTED.
--- NOTE | 2019-09-30 18:51 | NUR ---
MS RN CLOSING NOTES PT IN BED SLEEPING. RESTING COMFORTABLY. PT IS NON VERBAL. LEGALLY BLIND. NO CARDIAC OR RESP DISTRESS NOTED. STABLE ON RA WITH BREATHING EVEN AND UNLABORED, NO SOB NOTED. NO COMPLAINTS OF PAIN OR DISCOMFORT, NO FACIAL GRIMACING OR MOANING NOTED. CHAWLA CATHETER IN PLACE WITH CLEAR YELLOW URINE. GTUBE NOTED AND IN PLACE PROTECTED WITH ABDOMINAL BINDER. GTUBE SITE. INTACT AND PATENT. FLUSHING WELL. IV ACCESS NOTED ON L FA RUNNING WITH D5NS AT 100ML/HR . SAFETY PRECAUTIONS IN PLACE WITH BED IN LOWEST POSITION, CALL LIGHT WITHIN REACH, BREAKS ON, SIDE RAILS UP. ALL NEEDS ATTENDED TO. WILL CONT TO MONITOR.
[2019-09-30 19:30] VITALS: BP 100/58
--- NOTE | 2019-09-30 19:59 | NUR ---
MS RN NOTES PATIENT IN BED, NONVERBAL, OBTUNDED, LEGALLY BLIND. BREATHING EVEN AND UNLABORED ON ROOM AIR. SHOWS NO SIGNS OF ACUTE RESPIRATORY DISTRESS, NO ACUTE PAIN. CHAWLA CATHETER CLEAN DRY AND INTACT. FLOWING CLEAR YELLOW URINE. G TUBE IS CLEAN DRY AND INTACT, FLUSHING WELL. IV ON L FA AND R HAND RUNNING D5NS AT 100 ML/HR. SHOWS NO SIGNS OF INFILTRATION, NO REDNESS. SAFETY PRECAUTIONS IN PLACE. BED IN LOWEST POSITION, LOCKED, AND CALL LIGHT KEPT WITHIN REACH. WILL CONTINUE TO MONITOR.
[2019-09-30 20:00] VITALS: BP 100/58
[2019-10-01] VITALS: BP 102/59
[2019-10-01 04:00] VITALS: BP 120/62
[2019-10-01] MEDS: PIPERACILLIN /TAZOBACTAM 3.375 G in IV D5W 50 ML IV SCH ×4 (05:06→23:28)
[2019-10-01] MEDS: VANCOMYCIN 500 MG in IV D5W 100 ML IV SCH ×3 (06:00→23:29)
[2019-10-01] MEDS: IV D5/ 0.9% NACL 1,000 ML IV PRN ×2 (06:00→17:20)
--- NOTE | 2019-10-01 07:07 | NUR ---
ORNAMENTAL METAL WORKER NOTES PATIENT IN BED, NONVERBAL, OBTUNDED, LEGALLY BLIND. GROANING THROUGH OUT THE NIGHT. BREATHING EVEN AND UNLABORED ON ROOM AIR. SHOWS NO SIGNS OF ACUTE RESPIRATORY DISTRESS, NO ACUTE PAIN. CHAWLA CATHETER CLEAN DRY AND INTACT. FLOWING CLEAR YELLOW URINE. G TUBE IS CLEAN DRY AND INTACT, FLUSHING WELL. TELE MONITOR SR 60HR. IV ON L FA AND R HAND RUNNING D5NS AT 100 ML/HR. SHOWS NO SIGNS OF INFILTRATION, NO REDNESS. SAFETY PRECAUTIONS IN PLACE. ALL DUE MEDICATIONS GIVEN. BED IN LOWEST POSITION, LOCKED, AND CALL LIGHT KEPT WITHIN REACH. WILL ENDORSE TO ONCOMING NURSE.
[2019-10-01 07:17] LABS: BASOPHILS # (AUTO) 0.1 /CMM (0.0-0.2); BASOPHILS % (AUTO) 1.5 % (0.0-2.0); EOSINOPHILS % (AUTO) 1.3 % (0.0-6.0); HEMATOCRIT 29 % (39-51); HEMOGLOBIN 9.1 g/dL (13.5-17.5); LYMPHOCYTES # (AUTO) 1.5 /CMM (0.8-4.8); LYMPHOCYTES % (AUTO) 33.6 % (20.0-44.0); MEAN CORPUSCULAR HGB CONC 31 g/dl (31.0-36.0); MEAN CORPUSCULAR VOLUME 89 fL (80-96); MONOCYTES # (AUTO) 0.3 /CMM (0.1-1.30); MONOCYTES % (AUTO) 7.7 % (2.0-12.0); NEUTROPHILS # (AUTO) 2.5 /CMM (1.8-8.9); NEUTROPHILS % (AUTO) 55.9 % (43.0-81.0); PLATELET COUNT (AUTO) 426 /CMM (150-450); RED BLOOD CELL COUNT(AUTO) 3.27 MIL/uL (4.5-6.0); WHITE BLOOD COUNT (AUTO) 4.4 K/uL (4.3-11.0)
[2019-10-01 07:41] LABS: CALCIUM, SERUM 8.1 mg/dL (8.5-10.1); CREATININE 0.6 mg/dL (0.6-1.3); POTASSIUM 3.5 mmol/L (3.5-5.1)
[2019-10-01 08:00] VITALS: BP 109/52
--- NOTE | 2019-10-01 08:06 | NUR ---
FORENSIC BALLISTICS EXPERT OPENING NOTE PATIENT IN BED RESTING COMFORTABLY. PATIENT IN NO ACUTE DISTRESS. NO SOB NOTED. PATIENT BREATHING IS EVEN AND UNLABORED. PATIENT ON CARDIAC MONITORING READING SINUS BRADYCARDIA HR 52. PATIENT GTUBE IS PATENT AND INTACT. PATIENT BED ALARM IS ON. SAFETY PRECAUTIONS IN PLACE. PATIENT BED IS LOCKED AND IN LOWEST POSITION. CALL LIGHT WITHIN REACH. PATIENT MAINTAINED ON ISOLATION PRECAUTIONS. WILL CONTINUE TO MONITOR.
[2019-10-01] MEDS: PANTOPRAZOLE 40 MG VIAL IV SCH (08:47)
[2019-10-01] MEDS: HYDROGEL DRESSING 90 GM TUBE TP SCH (11:23)
--- NOTE | 2019-10-01 11:54 | NUR ---
LEGAL JOB TITLES NOTE HYDROGEL APPLIED WHEN MADE READILY AVAILABLE FROM PHARMACY, WITH WOUND CARE ORDERS PROVIDED.
--- NOTE | 2019-10-01 12:00 | NUR ---
DRILL DOCTOR NOTE SPOKE WITH ELAN FROM PHARMACY AND PER ELAN SPOKE WITH DR. THOMAS REGARDING TPN STARTUP. PER DR. THOMAS OKAY TO START TPN AND NOT GTUBE FEEDINGS DUE TO CELLULITIS AROUND THE GTUBE AREA. PER ELAN OKAY TO START ONCE PICC LINE INSERTED. PER DR. THOAMS MADE AWARE OF PICC LINE INSERTION AND MEDIA CONSULTANT OUTSIDE SALES MADE AWARE.
[2019-10-01] MEDS ORDERED: TPN/PPN PER PHARMACY IV PRN (13:30)
[2019-10-01] MEDS ORDERED: DEXTROSE 50%-WATER 50 ML DISP.SYRIN IV PRN ×2 (14:00→14:30)
[2019-10-01] MEDS ORDERED: Sodium Chloride 154 MEQ in IV 10% DEXTROSE 1,000 ML IV PRN (14:00)
[2019-10-01] MEDS ORDERED: INSULIN REGULAR, HUMAN 100 UNIT/ML 3 ML VIAL SQ PRN ×2 (14:00→14:30)
[2019-10-01] MEDS ORDERED: FEE TPN 1 MIN EA MC ONE (14:24)
[2019-10-01] MEDS ORDERED: TPN BAG #1 IV PRN ×7 (15:00)
[2019-10-01 16:00] VITALS: BP 98/57
--- NOTE | 2019-10-01 16:13 | NUR ---
HEALTH EDUCATOR NOTE TRANSFERRED PATIENT CARE TO GERMAN Quintanilla RN. PATIENT MAINTAINED ON ISOLATION PRECAUTIONS. PATIENT IN NO ACUTE DISTRESS. NO SOB NOTED. PATIENT BREATHING IS EVEN AND UNLABORED. AWAITING VANCO TROUGH AND ENDORSED TO GIVE VANCO WHEN LAB IS RESULTED. PATIENT HAS PICC LINE INSERTED RIGHT UPPER ARM. CHEST XRAY ORDERED FOR CENTRAL LINE PLACEMENT CONFIRMATION. ENDORSED TO FOLLOW UP WITH PLACEMENT. PATIENT TURNED AND REPOSITIONED Q2H. PATIENT KEPT CLEAN AND DRY THROUGHOUT MY CARE. WOUND CARE PROVIDED ORDERED. PATIENT ON TELEL MONITORING READING SINUS RHYTHM HR 67. PATIENT BED IS LOCKED AND IN LOWEST POSITION. CALL LIGHT WITHIN REACH. ENDORSED CARE TO GERMAN Quintanilla RN FOR MALLORIE.
--- NOTE | 2019-10-01 17:30 | NUR ---
JAZLYN PICC LINE RN CALLED SAYING ITS OK TO USE PICC LINE AFTER SEEING THE XRAY OF PICC LINE RESULT.NOTIFIED PHARMACY,ELAN AND MADE AWARE.
--- NOTE | 2019-10-01 17:51 | NUR ---
checked pt's blood sugar and pt jerked his finger resulting to low blood sugar of 60.Rechecked pt's blood sugar and was 80.Started on TPN on the CHAIM PICC line.
[2019-10-01] MEDS: BLOOD SUGAR DIAGNOSTIC 1 EACH STRIP IN SCH (17:58)
[2019-10-01] MEDS ORDERED: BLOOD SUGAR DIAGNOSTIC 1 EACH STRIP IN SCH (18:00)
[2019-10-01 20:00] VITALS: BP 95/53
[2019-10-02] VITALS (7 sets, daily range): BP systolic 95–112; BP diastolic 49–66
[2019-10-02] MEDS: BLOOD SUGAR DIAGNOSTIC 1 EACH STRIP IN SCH ×4 (06:00→17:24)
[2019-10-02] MEDS: PIPERACILLIN /TAZOBACTAM 3.375 G in IV D5W 50 ML IV SCH ×3 (06:49→17:25)
[2019-10-02] MEDS: VANCOMYCIN 500 MG in IV D5W 100 ML IV SCH ×3 (06:50→22:25)
[2019-10-02 07:25] LABS: BASOPHILS # (AUTO) 0.1 /CMM (0.0-0.2); BASOPHILS % (AUTO) 1.2 % (0.0-2.0); EOSINOPHILS % (AUTO) 1.4 % (0.0-6.0); HEMATOCRIT 29 % (39-51); HEMOGLOBIN 8.9 g/dL (13.5-17.5); LYMPHOCYTES # (AUTO) 1.4 /CMM (0.8-4.8); LYMPHOCYTES % (AUTO) 28.6 % (20.0-44.0); MEAN CORPUSCULAR HGB CONC 31 g/dl (31.0-36.0); MEAN CORPUSCULAR VOLUME 88 fL (80-96); MONOCYTES # (AUTO) 0.4 /CMM (0.1-1.30); MONOCYTES % (AUTO) 9.1 % (2.0-12.0); NEUTROPHILS # (AUTO) 2.8 /CMM (1.8-8.9); NEUTROPHILS % (AUTO) 59.7 % (43.0-81.0); PLATELET COUNT (AUTO) 405 /CMM (150-450); RED BLOOD CELL COUNT(AUTO) 3.23 MIL/uL (4.5-6.0); WHITE BLOOD COUNT (AUTO) 4.7 K/uL (4.3-11.0)
--- NOTE | 2019-10-02 07:50 | NUR ---
STREET SUPERINTENDENT OPENING NOTE PATIENT IN BED RESTING COMFORTABLY. PATIENT IN NO ACUTE DISTRESS. NO SOB NOTED. PATIENT BREATHING IS EVEN AND UNLABORED. PATIENT ON CARDIAC MONITORING READING SINUS BRADYCARDIA HR 54. RIGHT UPPER ARM PICC LINE PATENT AND INTACT. PATIENT GTUBE IS PATENT AND INTACT. PATIENT BED ALARM IS ON. SAFETY PRECAUTIONS IN PLACE. PATIENT BED IS LOCKED AND IN LOWEST POSITION. CALL LIGHT WITHIN REACH. PATIENT MAINTAINED ON ISOLATION PRECAUTIONS. WILL CONTINUE TO MONITOR.
[2019-10-02 07:51] LABS: CREATININE 0.5 mg/dL (0.6-1.3); PHOSPHORUS 2.1 mg/dL (2.5-4.9)
[2019-10-02] MEDS: HYDROGEL DRESSING 90 GM TUBE TP SCH (08:54)
[2019-10-02] MEDS: PANTOPRAZOLE 40 MG VIAL IV SCH (08:54)
--- NOTE | 2019-10-02 10:38 | NUR ---
THEATRE DIRECTOR NOTE PATIENT POSITIVE FOR MRSA, BACTROBAN FOR NARES ORDERED. Addendum: 10/02/19 at 1039 by BERNADINE CAUSEY RN THEATRE DIRECTOR NOTE PATIENT POSITIVE FOR MRSA NARES, BACTROBAN FOR NARES ORDERED.
--- NOTE | 2019-10-02 11:46 | NUR ---
SALES ANALYTICS MANAGER NOTE PATIENT BLOOD SUGAR 89 AT THIS TIME. NO INSULIN COVERAGE GIVEN PER PROTOCOL.
[2019-10-02] MEDS ORDERED: TPN BAG #2 IV PRN ×8 (15:00)
[2019-10-02] MEDS: IV D5/ 0.9% NACL 1,000 ML IV PRN (15:29)
--- NOTE | 2019-10-02 17:41 | NUR ---
FINANCE CONSULTANT NOTE PATIENT BLOOD SUGAR IS 80 AT THIS TIME. NO INSULIN COVERAGE GIVEN PER PROTOCOL.
--- NOTE | 2019-10-02 18:55 | NUR ---
TICKET MAKER CLOSING NOTE PATIENT IN BED RESTING COMFORTABLY. PATIENT IN NO ACUTE DISTRESS. NO SOB NOTED. PATIENT BREATHING IS EVEN AND UNLABORED. PATIENT ON CARDIAC MONITORING READING SINUS BRADYCARDIA HR 52. RIGHT UPPER ARM PICC LINE PATENT AND INTACT. PATIENT GTUBE IS PATENT AND INTACT. PATIENT BED ALARM IS ON. SAFETY PRECAUTIONS IN PLACE. PATIENT KEPT CLEAN, DRY, AND COMFORTABLE THROUGHOUT SHIFT. PATIENT TURNED AND REPOSITIONED MUCH PATIENT ALLOWS. PATIENT BED IS LOCKED AND IN LOWEST POSITION. CALL LIGHT WITHIN REACH. PATIENT MAINTAINED ON ISOLATION PRECAUTIONS. WILL ENDORSE CARE TO PM SHIFT FOR MALLORIE.
--- NOTE | 2019-10-02 19:30 | NUR ---
POLITICAL AIDE OPENING NOTE RECEIVED PATIENT IN BED. OBTUNDED, NONVERBAL. ON MECHANICAL VENTILATOR. NO S/S RESP DISTRESS. NO S/S PAIN AT THIS TIME. EXTERNAL TELE MONITOR READS SINUS RHYTHM SN HR 57. IN NO APPARENT DISTRESS. CHAWLA CATHETER IS PRESENT, DRAINING TO GRAVITY, URINE IS YELLOW AND CLEAR. GTUBE IS PRESENT, DRESSING CHANGED, ASPIRATED 10ML RESIDUAL, FLUSHED 150ML NO RESISTANCE, CLAMPED. IV ACCESS IN CHAIM PICC LINE RUNNING TPN @80ML/HR AND RIGHT HAND #20 RUNNING D5NS@50ML/HR . BED IS LOW AND LOCK, HOB ELEVATED IN HIGH FOWLERS, SIDE RIAL UP X2, BED ALARM ON, EXTREMITIES OFFLOADED, CALL LIGHT WITHIN REACH. WILL CONTINUE TO MONITOR.
[2019-10-02] MEDS: MUPIROCIN OINT 2% 22 GM TUBE SCH (20:53)
[2019-10-03] VITALS: BP 110/63
[2019-10-03] MEDS: BLOOD SUGAR DIAGNOSTIC 1 EACH STRIP IN SCH ×4 (00:28→17:21)
[2019-10-03] MEDS: PIPERACILLIN /TAZOBACTAM 3.375 G in IV D5W 50 ML IV SCH ×4 (00:36→17:21)
[2019-10-03 02:00] VITALS: BP 110/45
--- NOTE | 2019-10-03 06:23 | NUR ---
PIT SHOVEL OPERATOR CLOSING NOTE PATIENT IN BED. OBTUNDED, NONVERBAL. TOLERATING ROOM AIR. RESPIRATIONS ARE EVEN AND UNLABORED. NO RESP DISTRESS NOTED. NO PAIN NOTED . EXTERNAL TELE MONITOR READS SB 59. NO DISTRESS NOTED. CHAWLA CATHETER IS MAINTAINED, DRAINING TO GRAVITY, URINE IS YELLOW AND CLEAR OUTPUT 550. GTUBE IS MAINTAINED, DRESSING CHANGED CLAMPED. IV ACCESS MAINTAINED IN CHAIM PICC LINE RUNNING TPN @60ML/HR AND RIGHT HAND #20 PATENT AND SALINE LOCKED . BED REMAINS LOW AND LOCK, HOB ELEVATED IN HIGH FOWLERS, SIDE RIAL UP X2, BED ALARM ON, EXTREMITIES OFFLOADED, CALL LIGHT WITHIN REACH. WILL ENDORSE TO NEXT SHIFT.
[2019-10-03] MEDS: VANCOMYCIN 500 MG in IV D5W 100 ML IV SCH ×3 (06:26→22:49)
--- NOTE | 2019-10-03 07:10 | NUR ---
STUDIO OPERATIONS MANAGER NOTES RECEIVED PATINET IN BED, NON VERBAL BUT RESPONSIVE TO VERBAL AND TACTILE STIMULI. HOB ELEVATED. ON TPN INFUSING @ 50ML/HR TO CHAIM PICC LINE THOMAS WELL. ON TELE MONITORING SB: 61. BED IN LOWEST POSITION, LOCKED. BED LARM ON. BED SIDERAILS UP X2.
[2019-10-03 07:32] LABS: CALCIUM, SERUM 7.8 mg/dL (8.5-10.1); CREATININE 0.5 mg/dL (0.6-1.3); POTASSIUM 3.4 mmol/L (3.5-5.1)
[2019-10-03 07:39] LABS: BASOPHILS # (AUTO) 0.1 /CMM (0.0-0.2); BASOPHILS % (AUTO) 2.1 % (0.0-2.0); EOSINOPHILS % (AUTO) 2.4 % (0.0-6.0); HEMATOCRIT 25 % (39-51); HEMOGLOBIN 8.1 g/dL (13.5-17.5); LYMPHOCYTES # (AUTO) 1.4 /CMM (0.8-4.8); LYMPHOCYTES % (AUTO) 38.9 % (20.0-44.0); MEAN CORPUSCULAR HGB CONC 32 g/dl (31.0-36.0); MEAN CORPUSCULAR VOLUME 87 fL (80-96); MONOCYTES # (AUTO) 0.3 /CMM (0.1-1.30); MONOCYTES % (AUTO) 8.5 % (2.0-12.0); NEUTROPHILS # (AUTO) 1.7 /CMM (1.8-8.9); NEUTROPHILS % (AUTO) 48.1 % (43.0-81.0); PLATELET COUNT (AUTO) 355 /CMM (150-450); RED BLOOD CELL COUNT(AUTO) 2.91 MIL/uL (4.5-6.0); WHITE BLOOD COUNT (AUTO) 3.5 K/uL (4.3-11.0)
[2019-10-03 08:00] VITALS: BP 114/40
[2019-10-03] MEDS: PANTOPRAZOLE 40 MG VIAL IV SCH (08:26)
[2019-10-03] MEDS: HYDROGEL DRESSING 90 GM TUBE TP SCH (08:27)
[2019-10-03] MEDS: MUPIROCIN OINT 2% 22 GM TUBE SCH ×2 (08:27→21:51)
[2019-10-03 08:43] LABS: PHOSPHORUS 2.6 mg/dL (2.5-4.9)
[2019-10-03] MEDS ORDERED: TPN BAG #3 IV PRN ×8 (12:00)
--- NOTE | 2019-10-03 12:36 | NUR ---
PNEUMATIC TUBE OPERATOR NOTES RELAYED TO DR. PARIS REGARDING GT SITE WITH ORDER TO START GT FEEDING ORDERED AND MONITOR FOR LEAKING.
--- NOTE | 2019-10-03 14:03 | NUR ---
CERTIFIED PROCEDURAL CODER NOTES RECEIVED A CALL FROM DR. DRAKE, RELAYED TO MD REGARDING STARTING GT FEEDING AND NEEDS TITRATION OF TPN, PER DR. DRAKE START BY TITRATING HALF CONTINUOUSLY THEN DC AND CONTINUE NEPRO FEEDING ORDERED.
[2019-10-03] MEDS ORDERED: NEPRO 1,000 ML BOTTLE GT PRN (14:30)
[2019-10-03 16:00] VITALS: BP 95/56
--- NOTE | 2019-10-03 18:55 | NUR ---
SENIOR PASTOR NOTES PATIENT RESTING COMFORTABLY IN BED. HOB ELEVATED. NO S/S OF RESPIRATORY DISTRESS. TITRATED TPN ACCORDINGLY. ON GT FEEDING NEPRO @ 55ML/HR INITIALLY STARTED AT 35ML/HR AND THOMAS WELL AND REACHED 55ML/HR PRIOR TO END OF SHIFT. NO RESIDUAL NOTED. NO LEAKING TO GT SITE. GT INTACT AND PATENT. REMAIN ON TELE MONITORING SB: 60. CHAIM PICC LINE AND LEFT HAND #22 INTACT AND PATENT. BED IN LOWEST POSITION, LOCKED. BED ALARM ON. BED SIDERAILS UP X2. IN NO APPARENT DISTRESS.
--- NOTE | 2019-10-03 19:10 | NUR ---
CALL CENTER NURSE NOTES RECEIVED PT IN BED RESTING. RESPIRATIONS EVEN AND UNLABORED WITH NO S/S OF ACUTE DISTRESS OR SOB NOTED. PT ON GT FEEDING NEPRO @ 55ML/HR TOLERATING WELL WITH NO LEAKING TO GT SITE. PT ON TELE MONITORING SR. PT WITH CHAIM PICC LINE AND LEFT HAND #22 INTACT AND PATENT AND INTACT. SAFETY MEASURES IN PLACE WITH BED IN LOWEST LOCKED POSITION WITH SIDE RAILS UP X2. BED ALARM ON. WILL CONTINUE TO MONITOR.
[2019-10-03] MEDS: IV D5/ 0.9% NACL 1,000 ML IV PRN (23:23)
[2019-10-04] MEDS: PIPERACILLIN /TAZOBACTAM 3.375 G in IV D5W 50 ML IV SCH ×3 (00:10→12:34)
[2019-10-04] MEDS: BLOOD SUGAR DIAGNOSTIC 1 EACH STRIP IN SCH ×3 (00:19→12:26)
[2019-10-04] MEDS: VANCOMYCIN 500 MG in IV D5W 100 ML IV SCH (06:51)
[2019-10-04 07:31] LABS: BASOPHILS # (AUTO) 0.1 /CMM (0.0-0.2); BASOPHILS % (AUTO) 0.9 % (0.0-2.0); EOSINOPHILS % (AUTO) 1.6 % (0.0-6.0); HEMATOCRIT 26 % (39-51); HEMOGLOBIN 8.1 g/dL (13.5-17.5); LYMPHOCYTES # (AUTO) 1.7 /CMM (0.8-4.8); LYMPHOCYTES % (AUTO) 28.5 % (20.0-44.0); MEAN CORPUSCULAR HGB CONC 31 g/dl (31.0-36.0); MEAN CORPUSCULAR VOLUME 88 fL (80-96); MONOCYTES # (AUTO) 0.4 /CMM (0.1-1.30); MONOCYTES % (AUTO) 6.8 % (2.0-12.0); NEUTROPHILS # (AUTO) 3.8 /CMM (1.8-8.9); NEUTROPHILS % (AUTO) 62.2 % (43.0-81.0); PLATELET COUNT (AUTO) 384 /CMM (150-450); RED BLOOD CELL COUNT(AUTO) 2.96 MIL/uL (4.5-6.0); WHITE BLOOD COUNT (AUTO) 6.1 K/uL (4.3-11.0)
[2019-10-04 07:56] LABS: CALCIUM, SERUM 7.9 mg/dL (8.5-10.1); CREATININE 0.6 mg/dL (0.6-1.3); PHOSPHORUS 2.1 mg/dL (2.5-4.9); POTASSIUM 3.4 mmol/L (3.5-5.1)
--- NOTE | 2019-10-04 07:58 | NUR ---
PATHOLOGY LABORATORY AIDES TEACHER NOTES RECEIVED PATIENT IN BED, AWAKE, A/O X1. PATIENT IS CONFUSED. BREATHING ON ROOM AIR AND SATURATING WELL. NO SIGNS OF SOB PRESENT. PATIENT ON EXTERNAL CARDIAC MONITORING WITH A CURRENT READING OF NORMAL SINUS RHYTHM 76 BPM. PT ON G-TUBE FEEDING NEPRO @ 55ML/HR TOLERATING WELL WITH NO LEAKING TO GT SITE. R HAND G#20 AND CHAIM PICC PRESENT AND INTACT. SAFETY PRECAUTIONS IN PLACE; BED IN LOW POSITION AND LOCKED, RAILS UP X2, CALL LIGHT WITHIN REACH. WILL CONTINUE TO MONITOR PATIENT.
[2019-10-04 08:00] VITALS: BP 91/45
[2019-10-04] MEDS ORDERED: TPN BAG #4 IV PRN ×6 (08:00)
[2019-10-04] MEDS: MUPIROCIN OINT 2% 22 GM TUBE SCH (09:28)
[2019-10-04] MEDS: HYDROGEL DRESSING 90 GM TUBE TP SCH (09:28)
[2019-10-04] MEDS: PANTOPRAZOLE 40 MG VIAL IV SCH (09:52)
[2019-10-04] MEDS ORDERED: Nepro GT (11:22)
[2019-10-04] MEDS ORDERED: INSU100V28 SQ (11:22)
[2019-10-04] MEDS ORDERED: MUPI22OI7 (11:22)
[2019-10-04] MEDS ORDERED: Blood Sugar Diagnostic IN (11:22)
[2019-10-04] MEDS ORDERED: RXVAN XX (11:22)
[2019-10-04] MEDS ORDERED: PIPE3.376 IV (11:22)
[2019-10-04] MEDS ORDERED: Hydrogel Dressing TP (11:22)
--- NOTE | 2019-10-04 12:28 | NUR ---
MS RN NOTES PATIENTS BS 65. ORANGE JUICE GIVEN. WILL REASSESS IN 15 MIN
--- NOTE | 2019-10-04 15:13 | NUR ---
MS PET CARE ASSISTANT NOTES PATIENT DISCHARGED TO SNF IN MEDICALLY STABLE CONDITION. G-TUBE IS IN PLACE WITH NO LEAKS. PATIENT IS A/O X1, CONFUSED AND AT TIMES AGITATED. PATIENT BREATHING ON ROOM AIR WITH NO S/S OF SOB. PICTURES TAKEN AND FILED. PATIENT HAD NO PERSONAL BELONGINGS WITH HIM. ALL DISCHARGE PAPERWORK DONE AND TEACHING PAPER ATTACHED TO PATIENT DISCHARGE FOLDER. CALLED SNF AND SPOKE TO ZACHARY, CASHIER RECEPTIONIST, REPORT GIVEN. L HAND IV SITE REMOVED AND WRIST BAND. PATIENT LEFT THE FLOOR ACCOMPANIED BY 2 computer systems auditor [facility]IA [facility] AT 1505.
== END 2019-10-04 15:25 | DRG 356 ==
LOC: ER 13:31 → MED 17:19 → TELE 10-01 03:34
PROVIDERS: ATTEND Registered Nurse
PROC: 0JBL0ZZ Excision of Right Upper Leg Subcutaneous Tissue and Fascia, Open Approach (ICD-10-PCS; principal; 2019-09-30)
PROC: 02HV33Z Insertion of Infusion Device into Superior Vena Cava, Percutaneous Approach (ICD-10-PCS; 2019-10-01)
PROC: B548ZZA Ultrasonography of Superior Vena Cava, Guidance (ICD-10-PCS; 2019-10-01)
DX: K94.22 Gastrostomy infection (principal); L89.154 Pressure ulcer of sacral region, stage 4; E43 Unspecified severe protein-calorie malnutrition; L03.311 Cellulitis of abdominal wall; N39.0 Urinary tract infection, site not specified; R64 Cachexia; Z68.1 Body mass index [BMI] 19.9 or less, adult; G93.40 Encephalopathy, unspecified; D68.69 Other thrombophilia; Y83.3 Surgical operation with formation of external stoma as the cause of abnormal reaction of the patient, or of later complication, without mention of misadventure at the time of the procedure; Q90.9 Down syndrome, unspecified; H54.61 Unqualified visual loss, right eye, normal vision left eye; K21.9 Gastro-esophageal reflux disease without esophagitis; Z74.01 Bed confinement status; Z86.718 Personal history of other venous thrombosis and embolism; E88.09 Other disorders of plasma-protein metabolism, not elsewhere classified; S71.001A Unspecified open wound, right hip, initial encounter; X58.XXXA Exposure to other specified factors, initial encounter; Y93.9 Activity, unspecified; M24.571 Contracture, right ankle; M24.572 Contracture, left ankle; L89.616 Pressure-induced deep tissue damage of right heel; L89.896 Pressure-induced deep tissue damage of other site; Y83.8 Other surgical procedures as the cause of abnormal reaction of the patient, or of later complication, without mention of misadventure at the time of the procedure; Y73.8 Miscellaneous gastroenterology and urology devices associated with adverse incidents, not elsewhere classified; Z22.322 Carrier or suspected carrier of Methicillin resistant Staphylococcus aureus; Z79.4 Long term (current) use of insulin; B96.89 Other specified bacterial agents as the cause of diseases classified elsewhere; Y92.129 Unspecified place in nursing home as the place of occurrence of the external cause
CPT/HCPCS: 36415; 36569; 71045-TC; 80048-TC; 80061-TC; 80076-TC; 80202-TC; 81000-TC; 82962-TC; 83540-TC; 83735-TC; 84100-TC; 84443-TC; 84478-TC; 85025-TC; 87040-TC; 87070-TC; 87081-TC; 87086-TC; 87186-TC; A4217; A6248; A6253; A6403; A6407; A9563; C1751; C9113; G0378; J1815; J2543; J3370; J3480; J3490; J7042; J7060

== ENCOUNTER → 2020-01-16 | Emergency (ER) | payer MEDICARE, MEDICAID ==
[~2020-01-16] VITALS: Ht 149.9 cm; Wt 37.2 kg
[~2020-01-16] MED LIST changes: -ACET-73 GT; +ACET-868 GT; +ACET650S11 RC; +ACID1TAB12 GT; -ALPR0.5T8 GT; -BENZ1TAB7 GT; +Blood Sugar Diagnostic IN; +DIATR MEGLU/DIATRIZOATE SODIUM 30 ML BOTTLE (GASTROGRAPHIN) ONE; +DIPH25CA51 GT; -DOCU-141 GT; -FOLI1TAB16 GT; +Hydrogel Dressing TP; +INSU100V28 SQ; -MIDO5TAB4 GT; +MUPI22OI7; +NUT.237L67 GT; +Nepro GT; +PANT40SU2 GT; +PIPE3.376 IV; -PRED2.5T GT; -QUET50TA GT; +RXVAN XX; -SENN-261 GT
--- NOTE | 2020-01-16 09:10 | NUR ---
JAMES FROM [facility] FOR GT REPLACEMENT, NON COMMUNICATIVE, WITH GT SITE REDNESS NOTED. CHANGED GT WITH NEW 16 FR.
--- NOTE | 2020-01-16 09:15 | NUR ---
CONTRAST GIVEN FOR KUB XR
--- NOTE | 2020-01-16 09:27 | NUR ---
CALLED TRANSPORT [facility] [phone] ETA 1200. CALLED TRANSPORT [facility] WITH ETA 1100 TRIP #[id number]
[2020-01-16 10:56] VITALS: BP 106/67
--- NOTE | 2020-01-16 10:59 | NUR ---
Picked up by EMT of regular ambulance. DC to SNF, back to [facility]. Stable condition. VSS. New GT intact.
== END ==
LOC: ER 08:47
DX: K94.23 Gastrostomy malfunction (principal); Z79.899 Other long term (current) drug therapy
CPT/HCPCS: 43762; 74018; 99284; Q9963